=== PATIENT | female | born 1990 | race American Indian/Alaskan Native ===

== ENCOUNTER 2017-02-16 23:24 | Emergency (ER) | payer MEDICAID, OTHER ==
[2017-02-16 23:24] VITALS: BP 141/88
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
[2017-02-16 23:48] LABS: CHLORIDE,CL 103 mmol/L (101-111); SODIUM,NA 137 mmol/L (135-145)
[2017-02-17] MEDS ORDERED: Phenytoin 100 MG Cap.ER PO ONE (00:56)
== END 2017-02-17 01:23 | disposition home or self-care (01) ==
LOC: DL.ED 23:24
DX: R56.9 Unspecified convulsions (principal); F17.210 Nicotine dependence, cigarettes, uncomplicated; Z88.0 Allergy status to penicillin
CPT/HCPCS: 36415; 70450; 80053; 80185; 84703; 85025; 99284; A9270

== ENCOUNTER 2019-08-07 21:30 | Observation (INO) | payer MEDICAID, OTHER ==
[2019-08-07 22:22] LABS: ANION GAP 13.6 mEq/L (7-13); CHLORIDE,CL 104 mmol/L (98-107); SODIUM,NA 138 mmol/L (136-145)
[2019-08-07] MEDS ORDERED: Sodium Chloride 0.9% 1,000 ML IV SCH (23:15)
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
--- NOTE | 2019-08-08 00:29 | PCM.HP ---
H&P History of Present Illness - General Admit Problem/Dx: Admission Diagnosis/Problem Admission Diagnosis/Problem Seizure Left Chest Pain Score (Numeric/FACES): 3 - Related Data Allergies/Adverse Reactions: Allergies Allergy/AdvReac Type Severity Reaction Status Date / Time amoxicillin [Amoxicillin] Allergy Hives Verified 08/07/19 21:37 Home Medications: Home Meds . [No Known Home Meds] 02/16/17 [History] Past Medical History - Past Health History Medical/Surgical History: Denies Medical/Surgical History Other HEENT History: WEARS GLASSES Cardiovascular History: Reports: Arrhythmia Neurological History: Reports: Seizure Psychiatric History: Reports: Anxiety Other Dermatologic History: SKIN GRAFT TO LEFT LEG Social & Family History - Family History Family Medical History: Noncontributory - Tobacco Use Smoking Status *Q: Current Every Day Smoker Years of Tobacco use: 8 Packs/Tins Daily: 0.2 Second Hand Smoke Exposure: Yes - Caffeine Use Caffeine Use: Reports: Coffee, Soda - Recreational Drug Use Recreational Drug Use: No - Living Situation & Occupation Living situation: Reports: with Significant Other Occupation: Unemployed Exam - Vital Signs Vital Signs: Last Vital Signs Temp 37.1 C 08/07/19 23:51 Pulse 80 08/07/19 23:51 Resp 14 08/07/19 23:51 BP 122/58 L 08/07/19 23:51 Pulse Ox 100 08/07/19 23:51 Weight: 99.427 kg - Patient Data Lab Results Last 24 hrs: Laboratory Results - last 24 hr 08/07/19 08/07/19 08/07/19 Range/Units 21:44 21:50 21:50 WBC 4.5 L (5.0-10.0) 10^3/uL RBC 4.00 L (4.2-5.4) 10^6/uL Hgb 7.4 L D (12.0-16.0) g/dL Hct 25.1 L (37.0-47.0) % MCV 62.8 L D (80-100) fL MCH 18.5 L (27.0-34.0) pg MCHC 29.5 L (33.0-35.0) g/dL Plt Count 429 (150-450) 10^3/uL Neut % (Auto) 67.7 (42.2-75.2) % Lymph % (Auto) 27.2 (20.5-50.1) % Ramsey % (Auto) 4.9 (2-8) % Eos % (Auto) 0.0 L (1.0-3.0) % Baso % (Auto) 0.2 (0.0-1.0) % Sodium 138 (136-145) mmol/L Potassium 3.6 (3.5-5.1) mmol/L Chloride 104 (98-107) mmol/L Carbon Dioxide 24 (21-32) mmol/L Anion Gap 13.6 H (7-13) mEq/L BUN 10 (7-18) mg/dL Creatinine 0.66 (0.55-1.02) mg/dL Est Cr Clr Drug Dosing 120.10 mL/min Estimated GFR (MDRD) > 60 BUN/Creatinine Ratio 15.2 (No establ ref range) Glucose 94 (74-99) mg/dL Calcium 7.9 L (8.5-10.1) mg/dL Magnesium (1.8-2.4) mg/dL Total Bilirubin 0.2 (0.2-1.0) mg/dL AST 11 L (15-37) U/L ALT 18 (14-59) U/L Alkaline Phosphatase 132 H (46-116) U/L Troponin I < 0.017 (0.000-0.056) ng/mL Total Protein 6.9 (6.4-8.2) g/dL Albumin 2.3 L (3.4-5.0) g/dL Globulin 4.6 Albumin/Globulin Ratio 0.50 HCG, Qual HCG, Quant (0-6) mIU/mL Urine Opiates Screen Negative (NEGATIVE) Ur Oxycodone Screen Positive H (NEGATIVE) Urine Methadone Screen Negative (NEGATIVE) Ur Barbiturates Screen Negative (NEGATIVE) U Tricyclic Antidepress Negative (NEGATIVE) Ur Phencyclidine Scrn Negative (NEGATIVE) Ur Amphetamine Screen Positive H (NEGATIVE) U Methamphetamines Scrn Positive H (NEGATIVE) Urine MDMA Screen Negative (NEGATIVE) U Benzodiazepines Scrn Negative (NEGATIVE) Urine Cocaine Screen Negative (NEGATIVE) U Marijuana (THC) Screen Negative (NEGATIVE) Ethyl Alcohol < 3 (0) mg/dL HIV-1 Antibody (NONREACTIVE) HIV-2 Antibody (NONREACTIVE) HIV P24 Antigen (NONREACTIVE) Blood Type Gel Antibody Screen 08/07/19 08/07/19 08/07/19 Range/Units 21:50 21:50 21:50 WBC (5.0-10.0) 10^3/uL RBC (4.2-5.4) 10^6/uL Hgb (12.0-16.0) g/dL Hct (37.0-47.0) % MCV (80-100) fL MCH (27.0-34.0) pg MCHC (33.0-35.0) g/dL Plt Count (150-450) 10^3/uL Neut % (Auto) (42.2-75.2) % Lymph % (Auto) (20.5-50.1) % Ramsey % (Auto) (2-8) % Eos % (Auto) (1.0-3.0) % Baso % (Auto) (0.0-1.0) % Sodium (136-145) mmol/L Potassium (3.5-5.1) mmol/L Chloride (98-107) mmol/L Carbon Dioxide (21-32) mmol/L Anion Gap (7-13) mEq/L BUN (7-18) mg/dL Creatinine (0.55-1.02) mg/dL Est Cr Clr Drug Dosing mL/min Estimated GFR (MDRD) BUN/Creatinine Ratio (No establ ref range) Glucose (74-99) mg/dL Calcium (8.5-10.1) mg/dL Magnesium (1.8-2.4) mg/dL Total Bilirubin (0.2-1.0) mg/dL AST (15-37) U/L ALT (14-59) U/L Alkaline Phosphatase (46-116) U/L Troponin I (0.000-0.056) ng/mL Total Protein (6.4-8.2) g/dL Albumin (3.4-5.0) g/dL Globulin Albumin/Globulin Ratio HCG, Qual Positive HCG, Quant 2934 H (0-6) mIU/mL Urine Opiates Screen (NEGATIVE) Ur Oxycodone Screen (NEGATIVE) Urine Methadone Screen (NEGATIVE) Ur Barbiturates Screen (NEGATIVE) U Tricyclic Antidepress (NEGATIVE) Ur Phencyclidine Scrn (NEGATIVE) Ur Amphetamine Screen (NEGATIVE) U Methamphetamines Scrn (NEGATIVE) Urine MDMA Screen (NEGATIVE) U Benzodiazepines Scrn (NEGATIVE) Urine Cocaine Screen (NEGATIVE) U Marijuana (THC) Screen (NEGATIVE) Ethyl Alcohol (0) mg/dL HIV-1 Antibody Non-reactive (NONREACTIVE) HIV-2 Antibody Non-reactive (NONREACTIVE) HIV P24 Antigen Non-reactive (NONREACTIVE) Blood Type Gel Antibody Screen 08/07/19 08/07/19 Range/Units 21:50 21:50 WBC (5.0-10.0) 10^3/uL RBC (4.2-5.4) 10^6/uL Hgb (12.0-16.0) g/dL Hct (37.0-47.0) % MCV (80-100) fL MCH (27.0-34.0) pg MCHC (33.0-35.0) g/dL Plt Count (150-450) 10^3/uL Neut % (Auto) (42.2-75.2) % Lymph % (Auto) (20.5-50.1) % Ramsey % (Auto) (2-8) % Eos % (Auto) (1.0-3.0) % Baso % (Auto) (0.0-1.0) % Sodium (136-145) mmol/L Potassium (3.5-5.1) mmol/L Chloride (98-107) mmol/L Carbon Dioxide (21-32) mmol/L Anion Gap (7-13) mEq/L BUN (7-18) mg/dL Creatinine (0.55-1.02) mg/dL Est Cr Clr Drug Dosing mL/min Estimated GFR (MDRD) BUN/Creatinine Ratio (No establ ref range) Glucose (74-99) mg/dL Calcium (8.5-10.1) mg/dL Magnesium 1.6 L (1.8-2.4) mg/dL Total Bilirubin (0.2-1.0) mg/dL AST (15-37) U/L ALT (14-59) U/L Alkaline Phosphatase (46-116) U/L Troponin I (0.000-0.056) ng/mL Total Protein (6.4-8.2) g/dL Albumin (3.4-5.0) g/dL Globulin Albumin/Globulin Ratio HCG, Qual HCG, Quant (0-6) mIU/mL Urine Opiates Screen (NEGATIVE) Ur Oxycodone Screen (NEGATIVE) Urine Methadone Screen (NEGATIVE) Ur Barbiturates Screen (NEGATIVE) U Tricyclic Antidepress (NEGATIVE) Ur Phencyclidine Scrn (NEGATIVE) Ur Amphetamine Screen (NEGATIVE) U Methamphetamines Scrn (NEGATIVE) Urine MDMA Screen (NEGATIVE) U Benzodiazepines Scrn (NEGATIVE) Urine Cocaine Screen (NEGATIVE) U Marijuana (THC) Screen (NEGATIVE) Ethyl Alcohol (0) mg/dL HIV-1 Antibody (NONREACTIVE) HIV-2 Antibody (NONREACTIVE) HIV P24 Antigen (NONREACTIVE) Blood Type O POSITIVE Gel Antibody Screen Negative Result Diagrams: 08/07/19 21:50 08/07/19 21:50 Paul Results Last 24 hrs: Microbiology 08/07/19 22:32 Wet Prep - Final Vagina Orders Last 24hrs: Active Orders 24 hr Category Date Time Status Admission Diagnosis [ADT] Stat ADT 08/07/19 23:29 Ordered Admission Status [Patient Status] [ADT] Routine ADT 08/07/19 23:29 Active Cardiac Monitoring [RC] . DIRECTED Care 08/07/19 23:29 Active Forearm 2V Lt [CR] Urgent Exams 08/07/19 22:59 Taken OB Ltd 1 or More Fetus [US] Urgent Exams 08/07/19 22:05 Taken CHLAMYDIA AND GONORRHEA BY TMA Routine Lab 08/07/19 22:32 Received CULTURE GROUP B STREP [RM] Routine Lab 08/07/19 22:32 Received HBSAG SCREEN [REF] Urgent Lab 08/07/19 23:03 Received HEP C VIRUS AB [REF] Urgent Lab 08/07/19 23:03 Received RPR (SYPHILIS SERO) W/ RFLX [REF] Routine Lab 08/07/19 23:03 Received RUBELLA ANTIBODY, IGG [REF] Routine Lab 08/07/19 23:03 Received UA RFX PAUL AND CULT IF INDIC [URIN] Urgent Lab 08/08/19 00:04 Ordered Sodium Chloride 0.9% [Normal Saline] 1,000 ml Med 08/07/19 23:15 Active IV ASDIRECTED Medication Orders Sodium Chloride (Normal Saline) 1,000 mls @ 999 mls/hr IV ASDIRECTED DIEGO Last Admin: 08/07/19 23:19 Dose: 999 mls/hr
[2019-08-08] MEDS ORDERED: Magnesium Sulfate/Water 2 GM in Premix Bag 1 BAG IV ONE (00:32)
[2019-08-08] MEDS ORDERED: LORazepam 2 MG/ML SDV IV PRN (00:41)
[2019-08-08] MEDS: Lactated Ringers 1,000 ML IV SCH ×3 (01:17→21:15)
[2019-08-08] MEDS: Acetaminophen 325 MG Tab PO PRN ×4 (01:34→17:10)
[2019-08-08] MEDS ORDERED: hydrOXYzine HCl 25 MG Tab PO ONE (01:34)
[2019-08-08] MEDS: Morphine 2 MG/ML Syringe IVPUSH PRN ×8 (02:54→21:19)
[2019-08-08] MEDS: Ascorbic Acid 500 MG Tab PO SCH ×2 (08:50→21:14)
[2019-08-08] MEDS: Ferrous Sulfate 325 MG Tab PO SCH ×2 (08:50→17:13)
[2019-08-08 12:51] LABS: ANION GAP 14.7 mEq/L (7-13); CHLORIDE,CL 106 mmol/L (98-107); SODIUM,NA 139 mmol/L (136-145)
[2019-08-08] MEDS ORDERED: Nitrofurantoin Monohydrate/Macrocrystalline 100 MG Cap PO SCH (13:00)
[2019-08-08] MEDS: Indomethacin 25 MG Cap PO SCH ×2 (13:36→21:13)
[2019-08-08] MEDS: hydrOXYzine HCl 25 MG Tab PO PRN (17:13)
[2019-08-08] MEDS ORDERED: hydrOXYzine HCl 25 MG Tab PO SCH (21:00)
[2019-08-08] MEDS: Nitrofurantoin Monohydrate/Macrocrystalline 100 MG Cap PO SCH (21:14)
[2019-08-09] MEDS: Lactated Ringers 1,000 ML IV SCH (03:41)
[2019-08-09] MEDS: Morphine 2 MG/ML Syringe IVPUSH PRN (03:42)
[2019-08-09 07:54] VITALS: BP 116/73; PULSE 57
[2019-08-09] MEDS: Indomethacin 25 MG Cap PO SCH ×2 (08:25→11:18)
[2019-08-09] MEDS: Ascorbic Acid 500 MG Tab PO SCH (08:25)
[2019-08-09] MEDS: Acetaminophen 325 MG Tab PO PRN (08:25)
[2019-08-09] MEDS: Nitrofurantoin Monohydrate/Macrocrystalline 100 MG Cap PO SCH (08:25)
[2019-08-09] MEDS: Ferrous Sulfate 325 MG Tab PO SCH (08:25)
[2019-08-09] MEDS: hydrOXYzine HCl 25 MG Tab PO PRN (11:19)
--- NOTE | 2019-08-09 23:07 | PCM.DCSUM1 ---
Discharge Summary - Discharge Data Discharge Disposition: Home, Self-Care 01 Condition: Good - Referral to Home Health Primary Care Physician: Gabby Yates MD - Patient Summary/Data Consults: Consultations 08/08/19 00:50 Consult to Case Management/Whitesmith [CONS] Routine 08/08/19 12:49 OT Evaluation and Treatment [CONS] Routine - Patient Instructions Diet: Usual Diet as Tolerated Activity: As Tolerated Driving: May Drive Today Showering/Bathing: May Shower Notify Provider of: Fever, Increased Pain - Discharge Plan *PRESCRIPTION DRUG MONITORING PROGRAM REVIEWED*: No *COPY OF PRESCRIPTION DRUG MONITORING REPORT IN PATIENT REILLY: No Prescriptions/Med Rec: Ferrous Sulfate 325 mg PO BIDMEALS #60 tablet hydrOXYzine HCL [hydrOXYzine] 100 mg PO Q8H #60 tablet Indomethacin [Indocin] 25 mg PO TIDMEALS #42 cap Nitrofurantoin [place]/Macrocryst [Nitrofurantoin [place]-MCR] 100 mg PO BIDMEALS #12 cap Vit with Ca/FA/Iron [ Plus Iron] 1 each PO WITHBREAKFAST #30 tablet Home Medications: Home Meds Ascorbic Acid [Vitamin C] 500 mg PO BID #60 tablet 08/09/19 [Rx] Ferrous Sulfate 325 mg PO BIDMEALS #60 tablet 08/09/19 [Rx] Indomethacin [Indocin] 25 mg PO TIDMEALS #42 cap 08/09/19 [Rx] Nitrofurantoin [place]/Macrocryst [Nitrofurantoin [place]-MCR] 100 mg PO BIDMEALS #12 cap 08/09/19 [Rx] Vit with Ca/FA/Iron [ Plus Iron] 1 each PO WITHBREAKFAST #30 tablet 08/09/19 [Rx] hydrOXYzine HCL [hydrOXYzine] 100 mg PO Q8H #60 tablet 08/09/19 [Rx] Patient Handouts: Anemia, Seizure, Adult, Venous Thromboembolism Prevention Referrals: Dacia Yates MD [Primary Care Provider] - - Patient Data Vitals - Most Recent: Last Vital Signs Temp 37.1 C 08/09/19 07:53 Pulse 57 L 08/09/19 07:53 Resp 20 08/09/19 07:53 BP 116/73 08/09/19 07:53 Pulse Ox 98 08/09/19 07:53 Weight - Most Recent: 99.427 kg I&O - Last 24 hours: Intake & Output 08/09/19 08/09/19 08/10/19 14:59 22:59 06:59 Output Total 1000 Balance -1000 Lab Results - Last 24 hrs: Laboratory Results - last 24 hr 08/07/19 08/07/19 08/07/19 Range/Units 21:50 22:32 23:03 WBC (5.0-10.0) 10^3/uL RBC (4.2-5.4) 10^6/uL Hgb (12.0-16.0) g/dL Hct (37.0-47.0) % MCV (80-100) fL MCH (27.0-34.0) pg MCHC (33.0-35.0) g/dL Plt Count (150-450) 10^3/uL Transferrin (203-362) mg/dL Chlamydia/GC Source Urine C.trachomatis RNA (TMA) Negative (Negative) N.gonorrhoeae RNA (TMA) Negative (Negative) Rubella Immune Status Immune Rubella IgG Antibody Positive IU/mL Crossmatch See Detail 08/08/19 08/09/19 Range/Units 12:25 04:30 WBC 5.0 (5.0-10.0) 10^3/uL RBC 3.83 L (4.2-5.4) 10^6/uL Hgb 7.7 L (12.0-16.0) g/dL Hct 25.1 L (37.0-47.0) % MCV 65.5 L (80-100) fL MCH 20.1 L (27.0-34.0) pg MCHC 30.7 L (33.0-35.0) g/dL Plt Count 367 (150-450) 10^3/uL Transferrin 428 H (203-362) mg/dL Chlamydia/GC Source C.trachomatis RNA (TMA) (Negative) N.gonorrhoeae RNA (TMA) (Negative) Rubella Immune Status Rubella IgG Antibody IU/mL Crossmatch BEAU Results - Last 24 hrs: Microbiology 08/08/19 13:10 Aerobic Blood Culture - Preliminary Blood - Venous - Lab Draw NO GROWTH AFTER 1 DAY Anaerobic Blood Culture - Preliminary NO GROWTH AFTER 1 DAY 08/08/19 13:05 Aerobic Blood Culture - Preliminary Blood - Venous NO GROWTH AFTER 1 DAY Anaerobic Blood Culture - Preliminary NO GROWTH AFTER 1 DAY 08/08/19 00:04 Urine Culture - Final Urine, Voided Escherichia Coli Med Orders - Current: Current Medications Discontinued Medications Acetaminophen (Tylenol) 650 mg PO Q4H PRN PRN Reason: Pain (mild 1-3 )/fever Last Admin: 08/09/19 08:25 Dose: 650 mg Ascorbic Acid (Vitamin C) 500 mg PO BID COUNTS INCLUDE 234 BEDS AT THE [facility] Last Admin: 08/09/19 08:25 Dose: 500 mg Ferrous Sulfate (Ferrous Sulfate) 325 mg PO BIDMEALS COUNTS INCLUDE 234 BEDS AT THE [facility] Last Admin: 08/09/19 08:25 Dose: 325 mg Hydroxyzine HCl (Atarax) 50 mg PO BEDTIME COUNTS INCLUDE 234 BEDS AT THE [facility] Hydroxyzine HCl (Atarax) 50 mg PO ONETIME ONE Stop: 08/08/19 01:35 Last Admin: 08/08/19 01:55 Dose: 50 mg Hydroxyzine HCl (Atarax) 100 mg PO Q8H PRN PRN Reason: Anxiety Last Admin: 08/09/19 11:19 Dose: 100 mg Sodium Chloride (Normal Saline) 1,000 mls @ 999 mls/hr IV ASDIRECTED COUNTS INCLUDE 234 BEDS AT THE [facility] Last Admin: 08/07/19 23:19 Dose: 999 mls/hr Lactated Ringer's (Ringers, Lactated) 1,000 mls @ 150 mls/hr IV ASDIRECTED COUNTS INCLUDE 234 BEDS AT THE [facility] Last Admin: 08/09/19 03:41 Dose: 150 mls/hr Magnesium Sulfate 2 gm/ Premix 50 mls @ 25 mls/hr IV ONETIME ONE Stop: 08/08/19 02:31 Last Admin: 08/08/19 01:20 Dose: 25 mls/hr Indomethacin (Indocin) 25 mg PO TIDMEALS COUNTS INCLUDE 234 BEDS AT THE [facility] Last Admin: 08/09/19 11:18 Dose: 25 mg Influenza Virus Vaccine (Afluria Quad 2018- (3yr Up)) 60 mcg IM .ONCE ONE Stop: 08/09/19 09:16 Last Admin: 08/09/19 11:24 Dose: 60 mcg Lorazepam (Ativan) 4 mg IV ONETIME PRN PRN Reason: Seizures Morphine Sulfate (Morphine) 2 mg IVPUSH Q2H PRN PRN Reason: Pain Last Admin: 08/09/19 03:42 Dose: 2 mg Nitrofurantoin Macrocrystals (Macrobid) 100 mg PO BIDMEALS COUNTS INCLUDE 234 BEDS AT THE [facility] Stop: 08/15/19 13:01 Last Admin: 08/08/19 13:36 Dose: 100 mg Nitrofurantoin Macrocrystals (Macrobid) 100 mg PO BIDMEALS COUNTS INCLUDE 234 BEDS AT THE [facility] Last Admin: 08/09/19 08:25 Dose: 100 mg Prenat Multivit/Slide Machine Tender/Iron/Folic Ac ( Plus Iron) 1 each PO WITHBREAKFAST DIEGO
[2019-08-10] MEDS ORDERED: Prenatal Multivitamin with Calcium/Folic Acid/Iron Tab PO SCH (08:00)
== END 2019-08-09 12:10 | disposition home or self-care (01) ==
LOC: DL.ED 21:30 → DL.MS 23:29 → EEVIPCON 23:29
PROVIDERS: ADMIT Family Medicine; ATTEND Family Medicine
DX: O99.352 Diseases of the nervous system complicating pregnancy, second trimester (principal); R56.9 Unspecified convulsions; O99.322 Drug use complicating pregnancy, second trimester; F15.10 Other stimulant abuse, uncomplicated; O9A.212 Injury, poisoning and certain other consequences of external causes complicating pregnancy, second trimester; T14.8XXD Other injury of unspecified body region, subsequent encounter; F11.10 Opioid abuse, uncomplicated; O99.332 Smoking (tobacco) complicating pregnancy, second trimester; F17.210 Nicotine dependence, cigarettes, uncomplicated; Z88.0 Allergy status to penicillin; Z59.0 Homelessness; Z3A.22 22 weeks gestation of pregnancy
CPT/HCPCS: 36415; 36430; 73090-LT; 76815; 76881-LT; 80048; 80053; 80305-QW; 80307; 81001; 82728; 83540; 83550; 83735; 84466; 84484; 84702; 84703; 85025; 85027; 86592; 86593; 86762; 86803; 86850; 86900; 86901; 86920; 86922; 87040; 87077; 87081; 87086; 87088; 87186; 87210; 87340; 87389; 87491; 87591; 90686; 93005; 96361; 96365; 96366; 96375; 96376; 97140-GO; 97165-GO; 99284; 99285-25; A9270-GY; G0008; G0378; J2270; J3475; J7030; J7120; P9016

== ENCOUNTER 2019-12-10 03:16 | Inpatient (IN) | payer MEDICAID, OTHER ==
[2019-12-10] MEDS ORDERED: Oxytocin/Normal Saline 60 UNIT/1,000 ML BAG ONE (04:28)
[2019-12-10] MEDS ORDERED: ceFAZolin 2 GM in Premix Bag 1 BAG IV ONE (04:30)
[2019-12-10] MEDS ORDERED: Citric Acid/Sodium Citrate Solution 30 ML Cup PO ONE (04:30)
[2019-12-10] MEDS ORDERED: Tranexamic Acid 1,000 MG in Sodium Chloride 0.9% 100 ML IV PRN ×2 (04:30→06:35)
[2019-12-10] MEDS ORDERED: Oxytocin/Normal Saline 30 UNIT/500 ML BAG IV SCH (04:30)
[2019-12-10] MEDS ORDERED: Sodium Chloride 0.9% 10 ML Syringe FLUSH PRN (04:30)
[2019-12-10] MEDS ORDERED: Lactated Ringers 1,000 ML IV SCH ×2 (04:30)
--- NOTE | 2019-12-10 04:45 | PCM.LDHP ---
L&D History of Present Illness - General Date of Service: 12/10/19 Admit Problem/Dx: Patient Status Order with Admit Dx/Problem 12/10/19 04:36 Patient Status [ADT] Routine Admission Diagnosis/Problem Admission Diagnosis/Problem care Source of Information: Patient History Limitations: Reports: No Limitations - History of Present Illness Introduction:: 29-year-old at 41w4d per ultrasound at 23w5d presents with contractions starting 2-3 hours prior to presentation to L&D. She has a history of primary section and pre-eclampsia. Patient has had no care with this . She was admitted to the medical floor 08/07/2019 for observation after possible seizure due to methamphetamine use. Patient did have OB labs and an ultrasound at that time. Ultrasound showed a single IUP in breech presentation with a posterior, low lying placenta. She had a significant anemia with a hemoglobin of 6.8 and was transfused 1 unit pRBCs. UDS was positive for opiates and methamphetamines. She had a UTI and was treated with macrobid. She also had a superficial venous thrombosis and hypomagnesia both of which were treated. Patient was discharge with macrobid for UTI, Vitamin C and ferrous sulfate for anemia, 14 days of indomethacin for superficial venous thrombosis and hydroxyzine for her anxiety. Due to her high risk drug use, patient had been discharged to [facility] for court-mandated drug treatment but eloped about 12 hours later. Patient admitted to regular methamphetamine and opiate use today. Last use was at 2300 yesterday. She reports good movement. Contractions are 3-4 minutes apart. - Related Data Allergies/Adverse Reactions: Allergies Allergy/AdvReac Type Severity Reaction Status Date / Time amoxicillin [Amoxicillin] Allergy Hives Verified 12/10/19 04:40 Past Medical History - Past Health History Medical/Surgical History: Denies Medical/Surgical History Other HEENT History: WEARS GLASSES Cardiovascular History: Reports: Arrhythmia Neurological History: Reports: Seizure Psychiatric History: Reports: Anxiety Other Dermatologic History: SKIN GRAFT TO LEFT LEG Social & Family History - Family History Family Medical History: Noncontributory - Caffeine Use Caffeine Use: Reports: Coffee, Soda - Living Situation & Occupation Living situation: Reports: with Significant Other Occupation: Unemployed H&P Review of Systems - Review of Systems: Review Of Systems: See Below General: Reports: Fatigue HEENT: Reports: No Symptoms Pulmonary: Reports: No Symptoms Cardiovascular: Reports: No Symptoms Gastrointestinal: Reports: No Symptoms Genitourinary: Reports: No Symptoms Musculoskeletal: Reports: No Symptoms Skin: Reports: No Symptoms Neurological: Reports: No Symptoms L&D Exam - Exam Exam: See Below - OB Specific Contraction Frequency (min): 2-5 Contraction Intensity: Moderate to Strong Movement: Active Heart Tones: Present Heart Tones per Min: 150 Heart Rate (FHR) Variability: Moderate (6-25 bmp) Presentation: Unable to Assess - Simms Score Simms Score Consistency: Soft Simms Score Effacement: >80% Simms Score Dilation: 3-4 cm Simms Score 's Station: -3 - Exam General: Alert, Oriented HEENT: Mucosa Moist & [place] Lungs: Clear to Auscultation, Normal Respiratory Effort Cardiovascular: Regular Rate, Regular Rhythm GI/Abdominal Exam: Other (Gravid) Back Exam: Normal Inspection Extremities: No Pedal Edema Skin: Warm, Dry, Other (Bilateral arms with multiple track jonas noted) Psychiatric: Alert - Patient Data Lab Results Last 24 hrs: Laboratory Results - last 24 hr 12/10/19 12/10/19 12/10/19 Range/Units 03:30 03:30 04:20 WBC 7.1 (5.0-10.0) 10^3/uL RBC 4.29 (4.2-5.4) 10^6/uL Hgb 9.2 L D (12.0-16.0) g/dL Hct 29.6 L (37.0-47.0) % MCV 69.0 L D (80-100) fL MCH 21.4 L (27.0-34.0) pg MCHC 31.1 L (33.0-35.0) g/dL Plt Count 396 (150-450) 10^3/uL Urine Color Yellow (YELLOW) Urine Appearance Slightly cloudy (CLEAR) Urine pH 6.5 (5.0-9.0) Ur Specific [place] >= 1.030 (1.005-1.030) Urine Protein Trace H (NEGATIVE) Urine Glucose (UA) Negative (NEGATIVE) Urine Ketones Negative (NEGATIVE) Urine Occult Blood Moderate H (NEGATIVE) Urine Nitrite Negative (NEGATIVE) Urine Bilirubin Negative (NEGATIVE) Urine Urobilinogen 0.2 (0.2-1.0) mg/dL Ur Leukocyte Esterase Small H (NEGATIVE) Urine Opiates Screen Negative (NEGATIVE) Ur Oxycodone Screen Positive H (NEGATIVE) Urine Methadone Screen Negative (NEGATIVE) Ur Barbiturates Screen Negative (NEGATIVE) U Tricyclic Antidepress Negative (NEGATIVE) Ur Phencyclidine Scrn Negative (NEGATIVE) Ur Amphetamine Screen Positive H (NEGATIVE) U Methamphetamines Scrn Positive H (NEGATIVE) Urine MDMA Screen Positive H (NEGATIVE) U Benzodiazepines Scrn Negative (NEGATIVE) Urine Cocaine Screen Negative (NEGATIVE) U Marijuana (THC) Screen Negative (NEGATIVE) Result Diagrams: 12/10/19 04:20 12/10/19 04:20 - Problem List (1) History of section SNOMED Code(s): 135617429 ICD Code: Z98.891 - HISTORY OF UTERINE SCAR FROM PREVIOUS SURGERY Status: Acute Current Visit: Yes (2) History of pre-eclampsia in prior , currently in third trimester SNOMED Code(s): 808874485414447, 742893262350025 ICD Code: O09.293 - SUPRVSN OF PREG W POOR REPRODCTV OR OBSTET HX, THIRD TRI Status: Acute Current Visit: Yes (3) Drug use affecting in third trimester SNOMED Code(s): 13428850, 67954324, 931250217 ICD Code: O99.323 - DRUG USE COMPLICATING , THIRD TRIMESTER Status: Acute Current Visit: Yes (4) Gestational hypertension SNOMED Code(s): 496566766 ICD Code: O13.9 - GESTATIONAL HTN W/O SIGNIFICANT PROTEINURIA, UNSP TRIMESTER Status: Acute Current Visit: Yes (5) Anemia affecting in third trimester SNOMED Code(s): 16702014, 38771193 ICD Code: O99.013 - ANEMIA COMPLICATING , THIRD TRIMESTER Status: Acute Current Visit: Yes (6) Drug abuse SNOMED Code(s): 04960918 ICD Code: F19.10 - OTHER PSYCHOACTIVE SUBSTANCE ABUSE, UNCOMPLICATED Status: Acute Current Visit: No (7) No care in current SNOMED Code(s): 242834264 ICD Code: O09.30 - SUPRVSN OF PREG W INSUFFICIENT ANTENAT CARE, UNSP TRIMESTER Status: Acute Current Visit: No Qualifiers: Trimester: second trimester Qualified Code(s): O09.32 - Supervision of with insufficient care, second trimester (8) Hepatitis C antibody positive in blood SNOMED Code(s): 943906002 ICD Code: R76.8 - OTHER SPECIFIED ABNORMAL IMMUNOLOGICAL FINDINGS IN SERUM Status: Acute Current Visit: Yes Problem List Initiated/Reviewed/Updated: Yes Orders Last 24hrs: Active Orders 24 hr Category Date Time Status Patient Status [ADT] Routine ADT 12/10/19 04:36 Ordered Non Stress Test [RC] PER UNIT ROUTINE Care 12/10/19 04:36 Ordered Notify Provider Vital Signs OB [RC] ASDIRECTED Care 12/10/19 04:36 Ordered OB Check [OM.PC] Click to Edit Care 12/10/19 03:50 Ordered Peripheral IV Care [RC] . DIRECTED Care 12/10/19 04:36 Ordered Procedure Site Prep Instruct [RC] ASDIRECTED Care 12/10/19 04:36 Ordered RT Incentive Spirometry [RC] ASDIRECTED Care 12/10/19 04:36 Ordered Vital Signs [RC] PER UNIT ROUTINE Care 12/10/19 04:36 Ordered Consult to Case Management/Ward Helper [CONS] Cons 12/10/19 04:30 Ordered Routine Nothing Per Oral Diet [DIET] Diet 12/10/19 Breakfast Ordered Nothing Per Oral Diet [DIET] Diet 12/10/19 Dinner Ordered Nothing Per Oral Diet [DIET] Diet 12/10/19 Lunch Ordered ALANINE AMINOTRANSFERASE,ALT [CHEM] Routine Lab 12/10/19 04:07 Ordered ASPARTATE AMNIOTRANSFERASE,AST [CHEM] Routine Lab 12/10/19 04:07 Ordered BLOOD UREA NITROGEN,BUN [CHEM] Routine Lab 12/10/19 04:07 Ordered CORONAVIRUS COVID-19 PCR PHL Stat Lab 12/10/19 04:07 Ordered CREATININE W/GFR [CHEM] Routine Lab 12/10/19 04:07 Ordered LACTATE DEHYDROGENASE,LDH [CHEM] Routine Lab 12/10/19 04:07 Ordered PROTEIN/CREATININE RATIO,URINE [URCHEM] Routine Lab 12/10/19 04:07 Ordered TYPE AND SCREEN [BBK] Routine Lab 12/10/19 04:36 Ordered URIC ACID [CHEM] Routine Lab 12/10/19 04:07 Ordered URINALYSIS W/MICROSCOPIC [UA W/MICROSCOPIC] [URIN] Lab 12/10/19 03:30 Results Routine Citric Acid/Sodium Citrate [Bicitra Solution] Med 12/10/19 04:30 Once 30 ml PO ONETIME ONE Lactated Ringers @ 125 MLS/HR(1000ml) Med 12/10/19 04:30 Ordered Lactated Ringers [Ringers, Lactated] 1,000 ml IV ASDIRECTED Lactated Ringers [Ringers, Lactated] 1,000 ml Med 12/10/19 04:30 Ordered IV .BOLUS Oxytocin 30 Units in NS @ 2 MUNITS/MIN(500ml) Med 12/10/19 04:30 Ordered Oxytocin/Normal Saline [Pitocin in NS 30 UNIT/500 ML] 30 unit in 500 ml IV TITRATE Sodium Chloride 0.9% [Saline Flush] Med 12/10/19 04:30 Ordered 10 ml FLUSH ASDIRECTED PRN Tranexamic Acid [Cyklokapron] 1,000 mg Med 12/10/19 04:30 Ordered Sodium Chloride 0.9% [Normal Saline] 100 ml IV ONETIME ceFAZolin [Ancef] 2 gm Med 12/10/19 04:30 Ordered Premix Bag 1 bag IV ONETIME Peripheral IV Insertion Adult [OM.PC] Routine Oth 12/10/19 04:36 Ordered Schedule Procedure [COMM] Per Unit Routine Oth 12/10/19 04:36 Ordered Resuscitation Status Routine Resus Stat 12/10/19 04:30 Ordered Medication Orders Citric Acid/Sodium Citrate (Bicitra Solution) 30 ml PO ONETIME ONE Stop: 12/10/19 04:31 Lactated Ringer's (Ringers, Lactated) 1,000 mls @ 125 mls/hr IV ASDIRECTED DIEGO Lactated Ringer's (Ringers, Lactated) 1,000 mls @ 500 mls/hr IV .BOLUS D[place] Tranexamic Acid 1,000 mg/ (Sodium Chloride) 110 mls @ 660 mls/hr IV ONETIME PRN PRN Reason: Bleeding Oxytocin/Sodium Chloride (Pitocin In Ns 30 Unit/500 Ml) 30 unit in 500 mls @ 2 mls/hr IV TITRATE DIEGO; Protocol Cefazolin Sodium/Dextrose 2 gm (/ Premix) 50 mls @ 100 mls/hr IV ONETIME ONE Stop: 12/10/19 04:59 Sodium Chloride (Saline Flush) 10 ml FLUSH ASDIRECTED PRN PRN Reason: Keep Vein Open Assessment/Plan Comment:: 29-year-old at 41w4d per ultrasound done at 23w5d with a history of primary section presenting in active labor today --No care --Last drug use 2300--meth and opiates 1. Admit to L&D and initiate routine preoperative orders 2. Due to drug use and other co-morbid conditions, it would be preferable for patient to delivery at a tertiary hospital; however, due to active labor patient is not a candidate for transfer so we will proceed with repeat sec tion. 3. PIH labs have been ordered 4. 2 grams Ancef for pre-procedure prophylaxis. 5. Proceed with repeat section MARIANNA Dacia Yates MD
[2019-12-10] MEDS ORDERED: Carboprost Tromethamine 250 MCG/1 ML Amp IM PRN (06:35)
[2019-12-10] MEDS ORDERED: Acetaminophen 325 MG Tab PO PRN (06:35)
[2019-12-10] MEDS ORDERED: Acetaminophen/oxyCODONE 325-5 MG Tab PO PRN (06:35)
[2019-12-10] MEDS ORDERED: Naloxone 2 MG/2 ML Syringe IVPUSH PRN (06:35)
[2019-12-10] MEDS ORDERED: diphenhydrAMINE 50 MG/ML SDV IVPUSH PRN (06:35)
[2019-12-10] MEDS ORDERED: Methylergonovine 0.2 MG/1 ML Amp IM PRN (06:35)
[2019-12-10] MEDS ORDERED: Ondansetron 4 MG/2 ML SDV IVPUSH PRN (06:35)
[2019-12-10] MEDS ORDERED: Misoprostol 400 MCG (4 X 100 MCG TAB) RECTAL PRN (06:35)
[2019-12-10] MEDS ORDERED: ePHEDrine 50 MG/ML SDV IVPUSH PRN (06:35)
--- NOTE | 2019-12-10 06:52 | PCM.PRNOTE ---
- Free Text/Narrative Note: Section Operative Report Date of Surgery: 12/10/2019 Surgeon: Dacia Yates MD Ambulatory Care Nurse: Tania Tripp MD Pre-Operative Diagnosis: 41w4d History section History pre-eclampsia Gestational Hypertension No care Post-Operative Diagnosis: Same Procedure Performed: Repeat low transverse section Anesthesia: Spinal EBL: 450 mL IVF: 1400 mL Drains: Allen catheter with 150 mL of urine output Specimens: Umbilical cord for CordStat drug testing Complications: None apparent Findings: Normal uterus, tubes, and ovaries. Indication and Consent: The patient presented to floor today in active labor at 41w4d. Patient was noted to be 4 cm dilated. Patient admitted to methamphetamine and oxycodone use at 2300 yesterday. Due to active labor at term and history of section, the decision was made to proceed with repeat section. The patient understood that the risks of section include, but are not limited to, visceral or vascular injury, infection, blood loss and need for blood transfusion, prolonged hospitalization, and reoperation. The patient again stated understanding and desired to proceed. All questions were answered. Procedure in Detail: The patient was taken to the operating room where spinal anesthesia was placed and found to be adequate. 2 grams of cefazolin (Ancef) were given for infection prophylaxis. She was then prepped and draped in routine fashion in dorsal supine position with a left walsh tilt. Allen catheter and pneumoboots were placed. A Pfannenstiel skin incision was made with a scalpel. The incision was carried down to the fascia sharply. The fascia was incised and extended laterally. The superior aspect of the fascia was grasped with Darius clamps; the underlying rec tus muscle and pyramidalis was dissected off with sharp and blunt technique. In a similar fashion, the inferior aspect of the fascia was elevated with Darius clamps and the rectus muscle was dissected off. Hemostasis was achieved with the Bovie. The rectus musculature was in the midline down to the level of the pubic symphysis. Pre-peritoneal fatty tissue was bluntly dissected to expose the peritoneum. The peritoneum was found to be free of adherent bowel or bladder tissue and entered bluntly. The peritoneal opening was then extended superiorly and inferiorly to the bladder reflection with good visualization of the bladder. The Jagdeep retractor was inserted. Intraabdominal survey revealed scant, clear peritoneal fluid and thinned-out lower uterine segment. The vesicouterine peritoneum was opened with a pickup and mets, and the bladder flap was developed. The bladder blade was repositioned to keep the bladder out of the operative field. The lower uterine segment was incised with a scalpel. The amniotic sac ruptured with insertion of the finger into the hysterotomy. Thick meconium stained fluid was noted. The fetus was in footling breech position. The feet were gently pulled through the hysterotomy. The rump was elevated out of the maternal pelvis, sacrum anterior in position, with special attention paid to avoid using the uterine incision as a fulcrum. The fetus was delivered to the level of the scapula. A blue towel was wrapped around the fetus and then the fetus was then rotated 90 degree to facilitate sweeping the anterior arm across its face to deliver through the incision. The fetus was then rotated 180 degrees to deliver the other arm in a similar fashion. The Gentle fundal pressure was applied to keep the fetus's neck in flexed position as it was delivered through the incision. The infant was delivered with minimal difficulty. Bulb suctioning of the infant's nose and mouth was not performed on the operative field.. The cord was clamped and cut in standard fashion, and the infant was handed over to the awaiting nursery staff. Cord blood was collected. IV oxytocin was initiated to facilitate uterine contractions. The placenta was delivered intact with manual message of the uterine fundus along with gentle cord traction. The inside of the uterus was gently wiped with a lap sponge to assure complete removal of remaining products of conception. The uterine incision was closed with 0 -Vicryl suture in a running locked fashion. The incision was inspected and hemostasis was achieved. The ovaries and tubes were visualized and found to be normal. The blood clots and fluid were wiped out of the abdomen and pelvis with moist laparotomy sponges. The uterine incision was re-inspected along with all other incised surfaces and good hemostasis was confirmed. The Jagdeep retractor was removed. The fascia was then closed with 2-0 looped PDS suture with care not to include any underlying abdominal contents. The skin was closed with mansoor. Sponge and instrument counts were reported as correct times two. Patient tolerated procedure well and was taken to PACU in stable condition. Dacia Yates MD
--- NOTE | 2019-12-10 06:55 | PCM.DEL ---
L & D Note - General Info Date of Service: 12/10/19 Mother's Due Date: 11/29/19 - Delivery Note Labor: Spontaneous Delivery Outcome: Livebirth Infant Delivery Method: Repeat Presentation: Breech Anesthesia Type: Spinal Placenta: Intact Cord: 3 Vessels Estimated Blood Loss: 450 Resuscitation Needed: Yes : Suctioned, Stimulated, Warmed, [place] Used, Warmer Used Provider: Dacia Yates Score 1 min: 8 Score 5 min: 9 Delivery Comments (Free Text/Narrative):: Please see procedure note - General Info Date of Service: 12/10/19 - Patient Data Vitals - Most Recent: Last Vital Signs Temp 36.7 C 12/10/19 04:48 Pulse 83 12/10/19 04:48 Resp BP 166/98 H 12/10/19 04:48 Pulse Ox Weight - Most Recent: 104.326 kg Lab Results Last 24 Hours: Laboratory Results - last 24 hr 12/10/19 12/10/19 12/10/19 Range/Units 03:30 03:30 03:30 WBC (5.0-10.0) 10^3/uL RBC (4.2-5.4) 10^6/uL Hgb (12.0-16.0) g/dL Hct (37.0-47.0) % MCV (80-100) fL MCH (27.0-34.0) pg MCHC (33.0-35.0) g/dL Plt Count (150-450) 10^3/uL BUN (7-18) mg/dL Creatinine (0.55-1.02) mg/dL Est Cr Clr Drug Dosing mL/min Estimated GFR (MDRD) Uric Acid (2.6-6.0) mg/dL AST (15-37) U/L ALT (14-59) U/L Lactate Dehydrogenase (81-234) U/L Urine Color Yellow (YELLOW) Urine Appearance Slightly cloudy (CLEAR) Urine pH 6.5 (5.0-9.0) Ur Specific [place] >= 1.030 (1.005-1.030) Urine Protein Trace H (NEGATIVE) Urine Glucose (UA) Negative (NEGATIVE) Urine Ketones Negative (NEGATIVE) Urine Occult Blood Moderate H (NEGATIVE) Urine Nitrite Negative (NEGATIVE) Urine Bilirubin Negative (NEGATIVE) Urine Urobilinogen 0.2 (0.2-1.0) mg/dL Ur Leukocyte Esterase Small H (NEGATIVE) Urine RBC 0-5 /HPF Urine WBC 20-30 H (0-5/HPF) /HPF Ur Epithelial Cells Many H (NOT SEEN) /HPF Urine Bacteria Many H (0-FEW/HPF) /HPF Urine Other See note Urinalysis Comment Ur Random Creatinine 217.67 (No establ ref range) mg/dL U Random Total Protein 54.8 H (0.0-11.9) mg/dL Protein/Creatinin Ratio 251.8 H (<150.0) mg/g Urine Opiates Screen Negative (NEGATIVE) Ur Oxycodone Screen Positive H (NEGATIVE) Urine Methadone Screen Negative (NEGATIVE) Ur Barbiturates Screen Negative (NEGATIVE) U Tricyclic Antidepress Negative (NEGATIVE) Ur Phencyclidine Scrn Negative (NEGATIVE) Ur Amphetamine Screen Positive H (NEGATIVE) U Methamphetamines Scrn Positive H (NEGATIVE) Urine MDMA Screen Positive H (NEGATIVE) U Benzodiazepines Scrn Negative (NEGATIVE) Urine Cocaine Screen Negative (NEGATIVE) U Marijuana (THC) Screen Negative (NEGATIVE) COVID-19 (KURT) (NEGATIVE) Blood Type Gel Antibody Screen 12/10/19 12/10/19 12/10/19 Range/Units 04:20 04:20 04:20 WBC 7.1 (5.0-10.0) 10^3/uL RBC 4.29 (4.2-5.4) 10^6/uL Hgb 9.2 L D (12.0-16.0) g/dL Hct 29.6 L (37.0-47.0) % MCV 69.0 L D (80-100) fL MCH 21.4 L (27.0-34.0) pg MCHC 31.1 L (33.0-35.0) g/dL Plt Count 396 (150-450) 10^3/uL BUN 9 (7-18) mg/dL Creatinine 0.76 (0.55-1.02) mg/dL Est Cr Clr Drug Dosing 104.30 mL/min Estimated GFR (MDRD) > 60 Uric Acid 2.9 (2.6-6.0) mg/dL AST 22 (15-37) U/L ALT 24 (14-59) U/L Lactate Dehydrogenase 144 (81-234) U/L Urine Color (YELLOW) Urine Appearance (CLEAR) Urine pH (5.0-9.0) Ur Specific [place] (1.005-1.030) Urine Protein (NEGATIVE) Urine Glucose (UA) (NEGATIVE) Urine Ketones (NEGATIVE) Urine Occult Blood (NEGATIVE) Urine Nitrite (NEGATIVE) Urine Bilirubin (NEGATIVE) Urine Urobilinogen (0.2-1.0) mg/dL Ur Leukocyte Esterase (NEGATIVE) Urine RBC /HPF Urine WBC (0-5/HPF) /HPF Ur Epithelial Cells (NOT SEEN) /HPF Urine Bacteria (0-FEW/HPF) /HPF Urine Other Urinalysis Comment Ur Random Creatinine (No establ ref range) mg/dL U Random Total Protein (0.0-11.9) mg/dL Protein/Creatinin Ratio (<150.0) mg/g Urine Opiates Screen (NEGATIVE) Ur Oxycodone Screen (NEGATIVE) Urine Methadone Screen (NEGATIVE) Ur Barbiturates Screen (NEGATIVE) U Tricyclic Antidepress (NEGATIVE) Ur Phencyclidine Scrn (NEGATIVE) Ur Amphetamine Screen (NEGATIVE) U Methamphetamines Scrn (NEGATIVE) Urine MDMA Screen (NEGATIVE) U Benzodiazepines Scrn (NEGATIVE) Urine Cocaine Screen (NEGATIVE) U Marijuana (THC) Screen (NEGATIVE) COVID-19 (KURT) (NEGATIVE) Blood Type O POSITIVE Gel Antibody Screen Negative 12/10/19 Range/Units 04:35 WBC (5.0-10.0) 10^3/uL RBC (4.2-5.4) 10^6/uL Hgb (12.0-16.0) g/dL Hct (37.0-47.0) % MCV (80-100) fL MCH (27.0-34.0) pg MCHC (33.0-35.0) g/dL Plt Count (150-450) 10^3/uL BUN (7-18) mg/dL Creatinine (0.55-1.02) mg/dL Est Cr Clr Drug Dosing mL/min Estimated GFR (MDRD) Uric Acid (2.6-6.0) mg/dL AST (15-37) U/L ALT (14-59) U/L Lactate Dehydrogenase (81-234) U/L Urine Color (YELLOW) Urine Appearance (CLEAR) Urine pH (5.0-9.0) Ur Specific [place] (1.005-1.030) Urine Protein (NEGATIVE) Urine Glucose (UA) (NEGATIVE) Urine Ketones (NEGATIVE) Urine Occult Blood (NEGATIVE) Urine Nitrite (NEGATIVE) Urine Bilirubin (NEGATIVE) Urine Urobilinogen (0.2-1.0) mg/dL Ur Leukocyte Esterase (NEGATIVE) Urine RBC /HPF Urine WBC (0-5/HPF) /HPF Ur Epithelial Cells (NOT SEEN) /HPF Urine Bacteria (0-FEW/HPF) /HPF Urine Other Urinalysis Comment Ur Random Creatinine (No establ ref range) mg/dL U Random Total Protein (0.0-11.9) mg/dL Protein/Creatinin Ratio (<150.0) mg/g Urine Opiates Screen (NEGATIVE) Ur Oxycodone Screen (NEGATIVE) Urine Methadone Screen (NEGATIVE) Ur Barbiturates Screen (NEGATIVE) U Tricyclic Antidepress (NEGATIVE) Ur Phencyclidine Scrn (NEGATIVE) Ur Amphetamine Screen (NEGATIVE) U Methamphetamines Scrn (NEGATIVE) Urine MDMA Screen (NEGATIVE) U Benzodiazepines Scrn (NEGATIVE) Urine Cocaine Screen (NEGATIVE) U Marijuana (THC) Screen (NEGATIVE) COVID-19 (KURT) Negative (NEGATIVE) Blood Type Gel Antibody Screen Med Orders - Current: Current Medications Acetaminophen (Tylenol) 650 mg PO Q6H PRN PRN Reason: mild pain or fever Ascorbic Acid (Vitamin C) 500 mg PO DAILY [place]IE[place] Carboprost Tromethamine (Hemabate Ds) 250 mcg IM ONETIME PRN PRN Reason: Bleeding Diphenhydramine HCl (Benadryl) 25 mg IVPUSH Q6H PRN PRN Reason: Itching or Nausea Docusate Sodium (Colace) 100 mg PO Q12H PRN PRN Reason: Constipation Ephedrine Sulfate (Ephedrine Sulfate) 5 mg IVPUSH SEECOMMENT PRN PRN Reason: Other Ferrous Sulfate (Ferrous Sulfate) 325 mg PO BIDMEALS [place] Tranexamic Acid 1,000 mg/ (Sodium Chloride) 110 mls @ 660 mls/hr IV ONETIME PRN PRN Reason: Bleeding Oxytocin/Sodium Chloride (Pitocin In Ns 30 Unit/500 Ml) 30 unit in 500 mls @ 2 mls/hr IV TITRATE DIEGO; Protocol Last Admin: 12/10/19 06:17 Dose: 125 munits/min, 125 mls/hr Documented by: Lactated Ringer's (Ringers, Lactated) 1,000 mls @ 125 mls/hr IV ASDIRECTED [place] Ibuprofen (Motrin) 800 mg PO Q8H PRN PRN Reason: mild pain or fever Ketorolac Tromethamine (Toradol) 15 mg IVPUSH Q6H [facility] Stop: 12/10/19 18:46 Methylergonovine Maleate (Methergine) 0.2 mg IM ONETIME PRN PRN Reason: Excessive Vaginal Bleeding Misoprostol (Cytotec) 800 mcg RECTAL ASDIRECTED PRN PRN Reason: Excessive bleeding Naloxone HCl (Narcan) 0.1 mg IVPUSH SEECOMMENT PRN PRN Reason: Respiratory Depression Ondansetron HCl (Zofran) 4 mg IVPUSH Q4H PRN PRN Reason: Nausea/Vomiting Oxycodone/Acetaminophen (Percocet 325-5 Mg) 1 tab PO Q4H PRN PRN Reason: Pain (moderate 4-6) Oxycodone/Acetaminophen (Percocet 325-5 Mg) 2 tab PO Q4H PRN PRN Reason: Pain (moderate 4-6) Prenat Multivit/[place]/Iron/Folic Ac ( Plus Iron) 1 each PO DAILY [facility] Simethicone (Simethicone) 160 mg PO QID [facility] Sodium Chloride (Saline Flush) 10 ml FLUSH ASDIRECTED PRN PRN Reason: Keep Vein Open Discontinued Medications Citric Acid/Sodium Citrate (Bicitra Solution) 30 ml PO ONETIME ONE Stop: 12/10/19 04:31 Oxytocin/Sodium Chloride (Pitocin In Ns 30 Unit/500 Ml) Confirm Administered Dose 60 unit in 1,000 mls @ as directed .ROUTE .STK-MED ONE Stop: 12/10/19 04:29 Lactated Ringer's (Ringers, Lactated) 1,000 mls @ 125 mls/hr IV ASDIRECTED [facility] Lactated Ringer's (Ringers, Lactated) 1,000 mls @ 500 mls/hr IV .BOLUS [facility] Cefazolin Sodium/Dextrose 2 gm (/ Premix) 50 mls @ 100 mls/hr IV ONETIME ONE Stop: 12/10/19 04:59 - Problem List & Annotations (1) History of section SNOMED Code(s): 959438108 Code(s): Z98.891 - HISTORY OF UTERINE SCAR FROM PREVIOUS SURGERY Status: Acute Current Visit: Yes (2) History of pre-eclampsia in prior , currently in third trimester SNOMED Code(s): 245682344765242, 846727420870694 Code(s): O09.293 - SUPRVSN OF PREG W POOR REPRODCTV OR OBSTET HX, THIRD TRI Status: Acute Current Visit: Yes (3) Drug use affecting in third trimester SNOMED Code(s): 23474279, 06380108, 668481935 Code(s): O99.323 - DRUG USE COMPLICATING , THIRD TRIMESTER Status: Acute Current Visit: Yes (4) Gestational hypertension SNOMED Code(s): 912546624 Code(s): O13.9 - GESTATIONAL HTN W/O SIGNIFICANT PROTEINURIA, UNSP TRIMESTER Status: Acute Current Visit: Yes (5) Anemia affecting in third trimester SNOMED Code(s): 42104152, 14661613 Code(s): O99.013 - ANEMIA COMPLICATING , THIRD TRIMESTER Status: Acute Current Visit: Yes (6) Drug abuse SNOMED Code(s): 22194919 Code(s): F19.10 - OTHER PSYCHOACTIVE SUBSTANCE ABUSE, UNCOMPLICATED Status: Acute Current Visit: No (7) No care in current SNOMED Code(s): 916867965 Code(s): O09.30 - SUPRVSN OF PREG W INSUFFICIENT ANTENAT CARE, UNSP TRIMESTER Status: Acute Current Visit: No Qualifiers: Trimester: second trimester Qualified Code(s): O09.32 - Supervision of with insufficient care, second trimester (8) Hepatitis C antibody positive in blood SNOMED Code(s): 555466253 Code(s): R76.8 - OTHER SPECIFIED ABNORMAL IMMUNOLOGICAL FINDINGS IN SERUM Status: Acute Current Visit: Yes (9) Status post section SNOMED Code(s): 189225014, 822903845 Code(s): Z98.891 - HISTORY OF UTERINE SCAR FROM PREVIOUS SURGERY Status: Acute Current Visit: Yes - Problem List Review Problem List Initiated/Reviewed/Updated: Yes - My Orders Last 24 Hours: My Active Orders 12/10/19 03:50 OB Check [OM.PC] Click to Edit 12/10/19 04:30 Consult to Case Management/Tipple Supervisor [CONS] Routine Oxytocin/Normal Saline [Pitocin in NS 30 UNIT/500 ML] 30 unit in 500 ml IV TITRATE Sodium Chloride 0.9% [Saline Flush] 10 ml FLUSH ASDIRECTED PRN Tranexamic Acid [Cyklokapron] 1,000 mg Sodium Chloride 0.9% [Normal Saline] 100 ml IV ONETIME Resuscitation Status Routine 12/10/19 04:36 Patient Status [ADT] Routine Notify Provider Vital Signs OB [RC] ASDIRECTED Peripheral IV Care [RC] Peripheral IV Insertion Adult [OM.PC] Routine 12/10/19 06:35 Antiembolic Devices [RC] PER UNIT ROUTINE Bedrest [RC] ASDIRECTED Communication Order [RC] PER UNIT ROUTINE Communication Order [RC] PER UNIT ROUTINE Communication Order [RC] Per Unit Routine Intake and Output [RC] Q8H Notify Provider Intake and Out [RC] ASDIRECTED RT Incentive Spirometry [RC] Q2HWA Urinary Catheter Removal [RC] Per Unit Routine Vital Signs [RC] PER UNIT ROUTINE Acetaminophen [TylenoL] 650 mg PO Q6H PRN Acetaminophen/oxyCODONE [Percocet 325-5 MG] 1 tab PO Q4H PRN Acetaminophen/oxyCODONE [Percocet 325-5 MG] 2 tab PO Q4H PRN Carboprost Tromethamine [Hemabate DS] 250 mcg IM ONETIME PRN Docusate Sodium [Colace] 100 mg PO Q12H PRN Ibuprofen [Motrin] 800 mg PO Q8H PRN Methylergonovine [Methergine] 0.2 mg IM ONETIME PRN Naloxone [Narcan] 0.1 mg IVPUSH SEECOMMENT PRN Ondansetron [Zofran] 4 mg IVPUSH Q4H PRN diphenhydrAMINE [Benadryl] 25 mg IVPUSH Q6H PRN ePHEDrine [ePHEDrine sulfate] 5 mg IVPUSH SEECOMMENT PRN miSOPROStoL [Cytotec] 800 mcg RECTAL ASDIRECTED PRN Antiembolic Hose [OM.PC] Per Unit Routine Assess Lochia [WOMSER] Per Unit Routine Assess Uterine Involution [WOMSER] Per Unit Routine Breast Pump [WOMSER] Per Unit Routine Sequential Compression Device [OM.PC] Per Unit Routine 12/10/19 06:45 Ketorolac [Toradol] 15 mg IVPUSH Q6H Lactated Ringers @ 125 MLS/HR(1000ml) Lactated Ringers [Ringers, Lactated] 1,000 ml IV ASDIRECTED 12/10/19 Breakfast Nothing Per Oral Diet [DIET] 12/10/19 08:00 Ferrous Sulfate 325 mg PO BIDMEALS 12/10/19 09:00 Ascorbic Acid [Vitamin C] 500 mg PO DAILY Vit with Ca/FA/Iron [ Plus Iron] 1 each PO DAILY Simethicone 160 mg PO QID 12/10/19 Lunch Clear Liquid Diet [DIET] 12/11/19 06:30 CBC W/O DIFF,HEMOGRAM [HEME] Routine HEPATITIS C AB TOTAL IG [REF] Routine RPR (SYPHILIS SERO) W/ RFLX [REF] Routine - Assessment Assessment:: 29-year-old now at 41w4d s/p repeat section for active labor --No care --Breech - Plan Plan:: 1. Initiate routine cares 2. Plans to bottle feed 3. Will obtain CBC, HCV RNA and syphilis tomorrow 4. Anticipate discharge 12/10/2019 Dacia Yates MD
[2019-12-10] MEDS: Lactated Ringers 1,000 ML IV SCH ×3 (09:10→19:37)
[2019-12-10] MEDS: Ketorolac 30 MG/ML SDV IVPUSH SCH ×3 (12:10→17:56)
[2019-12-10] MEDS: Simethicone 80 MG Tab.Chew PO SCH ×4 (12:11→21:02)
[2019-12-10] MEDS: Acetaminophen/oxyCODONE 325-5 MG Tab PO PRN ×2 (14:27→18:28)
[2019-12-10] MEDS: Ferrous Sulfate 325 MG Tab PO SCH ×2 (16:17→17:54)
[2019-12-10] MEDS: Prenatal Multivitamin with Calcium/Folic Acid/Iron Tab PO SCH (16:23)
[2019-12-10] MEDS: Ascorbic Acid 500 MG Tab PO SCH (16:23)
[2019-12-10] MEDS: Docusate Sodium 100 MG Cap PO PRN (21:02)
[2019-12-11] MEDS: Ketorolac 30 MG/ML SDV IVPUSH SCH (00:13)
[2019-12-11] MEDS: Lactated Ringers 1,000 ML IV SCH ×2 (00:16→04:17)
[2019-12-11] MEDS ORDERED: Ibuprofen 800 MG Tab PO PRN (03:00)
[2019-12-11] MEDS: Acetaminophen/oxyCODONE 325-5 MG Tab PO PRN ×3 (04:14→12:12)
[2019-12-11] MEDS: Docusate Sodium 100 MG Cap PO PRN (08:16)
[2019-12-11] MEDS: Prenatal Multivitamin with Calcium/Folic Acid/Iron Tab PO SCH (08:16)
[2019-12-11] MEDS: Ferrous Sulfate 325 MG Tab PO SCH (08:16)
[2019-12-11] MEDS: Ascorbic Acid 500 MG Tab PO SCH (08:16)
[2019-12-11] MEDS: Simethicone 80 MG Tab.Chew PO SCH ×2 (08:16→12:14)
[2019-12-11] MEDS ORDERED: Oxytocin/Normal Saline 30 UNIT/500 ML BAG IV ONE (09:39)
[2019-12-11 11:17] VITALS: PULSE 52
[2019-12-11 11:28] VITALS: BP 104/75
[2019-12-11] MEDS ORDERED: Lactated Ringers 1,000 ML IV ONE (15:14)
[2019-12-11] MEDS ORDERED: Ondansetron 4 MG/2 ML SDV IV ONE (15:14)
[2019-12-11] MEDS ORDERED: Tranexamic Acid 1,000 MG in Sodium Chloride 0.9% 100 ML IV ONE (15:14)
[2019-12-11] MEDS ORDERED: Morphine PF 1 MG/ML Amp ONE (15:14)
[2019-12-11] MEDS ORDERED: Dexamethasone 4 MG/ML SDV IV ONE (15:14)
--- NOTE | 2019-12-11 23:16 | PCM.PNPP ---
- General Info Date of Service: 12/11/19 Subjective Update: POD#1. Patient is very sleepy this morning. She has not yet been out of bed. Urine output was low overnight. Patient was given a 500 mL bolus which did help. She has not yet been out of bed. She is tolerating a general diet. Some swelling in the legs. Baby was transferred to [facility] yesterday morning. No concerns per patient or per nursing staff. Functional Status: Reports: Pain Controlled, Tolerating Diet, Ambulating, U rinating - Review of Systems General: Reports: Fatigue HEENT: Reports: No Symptoms Pulmonary: Reports: No Symptoms Cardiovascular: Reports: No Symptoms Gastrointestinal: Reports: No Symptoms Genitourinary: Reports: No Symptoms Musculoskeletal: Reports: Back Pain Skin: Reports: No Symptoms Neurological: Reports: No Symptoms - General Info Date of Service: 12/11/19 - Patient Data Vital Signs - Most Recent: Last Vital Signs Temp 37.2 C 12/11/19 11:27 Pulse 52 L 12/11/19 11:27 Resp 16 12/11/19 11:27 BP 104/75 12/11/19 11:27 Pulse Ox 99 12/11/19 11:27 Weight - Most Recent: 104.326 kg I&O - Last 24 Hours: Intake & Output 12/11/19 12/11/19 12/12/19 14:59 22:59 06:59 Intake Total 390 Output Total 1280 Balance -890 Lab Results - Last 24 Hours: Laboratory Results - last 24 hr 12/10/19 12/11/19 Range/Units 04:20 05:40 WBC 6.7 (5.0-10.0) 10^3/uL RBC 3.17 L (4.2-5.4) 10^6/uL Hgb 6.8 L* D (12.0-16.0) g/dL Hct 22.4 L (37.0-47.0) % MCV 70.7 L (80-100) fL MCH 21.5 L (27.0-34.0) pg MCHC 30.4 L (33.0-35.0) g/dL Plt Count 330 (150-450) 10^3/uL Blood Type O POSITIVE Gel Antibody Screen Negative Crossmatch See Detail Med Orders - Current: Current Medications Discontinued Medications Acetaminophen (Tylenol) 650 mg PO Q6H PRN PRN Reason: mild pain or fever Ascorbic Acid (Vitamin C) 500 mg PO DAILY [facility] Last Admin: 12/11/19 08:16 Dose: 500 mg Documented by: Carboprost Tromethamine (Hemabate Ds) 250 mcg IM ONETIME PRN PRN Reason: Bleeding Citric Acid/Sodium Citrate (Bicitra Solution) 30 ml PO ONETIME ONE Stop: 12/10/19 04:31 Last Admin: 12/10/19 19:39 Dose: Not Given Documented by: Diphenhydramine HCl (Benadryl) 25 mg IVPUSH Q6H PRN PRN Reason: Itching or Nausea Docusate Sodium (Colace) 100 mg PO Q12H PRN PRN Reason: Constipation Last Admin: 12/11/19 08:16 Dose: 100 mg Documented by: Ephedrine Sulfate (Ephedrine Sulfate) 5 mg IVPUSH SEECOMMENT PRN PRN Reason: Other Ferrous Sulfate (Ferrous Sulfate) 325 mg PO BIDMEALS [facility] Last Admin: 12/11/19 08:16 Dose: 325 mg Documented by: Oxytocin/Sodium Chloride (Pitocin In Ns 30 Unit/500 Ml) Confirm Administered Dose 60 unit in 1,000 mls @ as directed .ROUTE .STK-MED ONE Stop: 12/10/19 04:29 Lactated Ringer's (Ringers, Lactated) 1,000 mls @ 125 mls/hr IV ASDIRECTED [facility] Lactated Ringer's (Ringers, Lactated) 1,000 mls @ 500 mls/hr IV .[place] Tranexamic Acid 1,000 mg/ (Sodium Chloride) 110 mls @ 660 mls/hr IV ONETIME PRN PRN Reason: Bleeding Oxytocin/Sodium Chloride (Pitocin In Ns 30 Unit/500 Ml) 30 unit in 500 mls @ 2 mls/hr IV TITRATE DIEGO; Protocol Last Titration: 12/10/19 09:15 Dose: 0 munits/min, 0 mls/hr Documented by: Cefazolin Sodium/Dextrose 2 gm (/ Premix) 50 mls @ 100 mls/hr IV ONETIME ONE Stop: 12/10/19 04:59 Last Admin: 12/10/19 05:16 Dose: 100 mls/hr Documented by: Lactated Ringer's (Ringers, Lactated) 1,000 mls @ 125 mls/hr IV ASDIRECTED [facility] Last Admin: 12/11/19 04:17 Dose: 125 mls/hr Documented by: Oxytocin/Sodium Chloride (Pitocin In Ns 30 Unit/500 Ml) 30 unit in 500 mls @ as directed IV .STK-MED ONE Stop: 12/11/19 09:40 Ibuprofen (Motrin) 800 mg PO Q8H PRN PRN Reason: mild pain or fever Last Admin: 12/11/19 08:18 Dose: 800 mg Documented by: Ketorolac Tromethamine (Toradol) 15 mg IVPUSH Q6H [facility] Stop: 12/10/19 18:46 Last Admin: 12/10/19 16:18 Dose: Not Given Documented by: Ketorolac Tromethamine (Toradol) 15 mg IVPUSH Q6H [facility] Stop: 12/11/19 00:01 Last Admin: 12/11/19 00:13 Dose: 15 mg Documented by: Methylergonovine Maleate (Methergine) 0.2 mg IM ONETIME PRN PRN Reason: Excessive Vaginal Bleeding Misoprostol (Cytotec) 800 mcg RECTAL ASDIRECTED PRN PRN Reason: Excessive bleeding Naloxone HCl (Narcan) 0.1 mg IVPUSH SEECOMMENT PRN PRN Reason: Respiratory Depression Ondansetron HCl (Zofran) 4 mg IVPUSH Q4H PRN PRN Reason: Nausea/Vomiting Oxycodone/Acetaminophen (Percocet 325-5 Mg) 1 tab PO Q4H PRN PRN Reason: Pain (moderate 4-6) Oxycodone/Acetaminophen (Percocet 325-5 Mg) 2 tab PO Q4H PRN PRN Reason: Pain (moderate 4-6) Last Admin: 12/11/19 12:12 Dose: 2 tab Documented by: Prenat Multivit/[place]/Iron/Folic Ac ( Plus Iron) 1 each PO DAILY [facility] Last Admin: 12/11/19 08:16 Dose: 1 each Documented by: Simethicone (Simethicone) 160 mg PO QID [facility] Last Admin: 12/11/19 12:14 Dose: 160 mg Documented by: Sodium Chloride (Saline Flush) 10 ml FLUSH ASDIRECTED PRN PRN Reason: Keep Vein Open - Interaction Disposition, : [place] transferred to [facility] Infant Interaction: Unable to Hold Infant at this Time Infant Feeding: Bottle Fed Support Person: Friend - Recovery Exam Fundal Tone: Firm Fundal Level: 2 Fingerbreadths Below Umbilicus Fundal Placement: Midline Lochia Amount: Small Lochia Color: Rubra/Red Perineum Description: Intact, Minimal Bruising/Swelling Episiotomy/Laceration: None Bladder Status: Indwelling Catheter in Place - Exam General: Alert, Oriented HEENT: Pupils Reactive Cardiovascular: Regular Rate, Regular Rhythm GI/Abdominal Exam: Soft, No Mass, Pelvis Stable Extremities: Pedal Edema (1+ bilaterally) Skin: Warm, Dry, Intact Wound/Incisions: Dressing Dry and Intact Neurological: No New Focal Deficit - Problem List & Annotations (1) History of section SNOMED Code(s): 697889544 Code(s): Z98.891 - HISTORY OF UTERINE SCAR FROM PREVIOUS SURGERY Status: Acute (2) History of pre-eclampsia in prior , currently in third trimester SNOMED Code(s): 732382850031499, 995561100991872 Code(s): O09.293 - SUPRVSN OF PREG W POOR REPRODCTV OR OBSTET HX, THIRD TRI Status: Acute (3) Drug use affecting in third trimester SNOMED Code(s): 92453946, 50036221, 845393907 Code(s): O99.323 - DRUG USE COMPLICATING , THIRD TRIMESTER Status: Acute (4) Gestational hypertension SNOMED Code(s): 377114013 Code(s): O13.9 - GESTATIONAL HTN W/O SIGNIFICANT PROTEINURIA, UNSP TRIMESTER Status: Acute (5) Anemia affecting in third trimester SNOMED Code(s): 25227358, 32766538 Code(s): O99.013 - ANEMIA COMPLICATING , THIRD TRIMESTER Status: Acute (6) Drug abuse SNOMED Code(s): 66457915 Code(s): F19.10 - OTHER PSYCHOACTIVE SUBSTANCE ABUSE, UNCOMPLICATED Status: Acute (7) No care in current SNOMED Code(s): 174494382 Code(s): O09.30 - SUPRVSN OF PREG W INSUFFICIENT ANTENAT CARE, UNSP TRIMESTER Status: Acute Qualifiers: Trimester: second trimester Qualified Code(s): O09.32 - Supervision of with insufficient care, second trimester (8) Hepatitis C antibody positive in blood SNOMED Code(s): 585417561 Code(s): R76.8 - OTHER SPECIFIED ABNORMAL IMMUNOLOGICAL FINDINGS IN SERUM Status: Acute (9) Status post section SNOMED Code(s): 113909224, 572514018 Code(s): Z98.891 - HISTORY OF UTERINE SCAR FROM PREVIOUS SURGERY Status: Acute - Problem List Review Problem List Initiated/Reviewed/Updated: Yes - My Orders Last 24 Hours: My Active Orders 12/11/19 05:40 HCV RNA BY PCR, QN RFX ROMELIA [REF] Routine RPR (SYPHILIS SERO) W/ RFLX [REF] Routine 12/11/19 07:43 Transfuse PRBC [Transfuse Red Blood Cells] [COMM] Routine - Assessment Assessment:: 29-year-old now G2P at 41w4d POD#1 s/p repeat section for active labor - Plan Plan:: 1. Continue routine cares 2. Baby transferred to NICU 3. Hemoglobin down to 6.8, due to combination of anemia of , appropriate intraoperative blood loss and hemo-concentration upon arrival to L&D. Will transfuse with 1 unit pRBCs and repeat CBC 6 hours after completion of transfusion 4. Anticipate discharge 12/10/2019 Dacia Yates MD
--- NOTE | 2019-12-11 23:20 | PCM.DCSUM1 ---
Discharge Summary - Hospital Course Diagnosis: Stroke: No - Discharge Data Discharge Date: 12/11/19 Discharge Disposition: Against Medical Advice 07 Condition: Undetermined - Referral to Home Health Primary Care Physician: Adrien Middleton MD - Discharge Diagnosis/Problem(s) (1) History of section SNOMED Code(s): 149358898 ICD Code: Z98.891 - HISTORY OF UTERINE SCAR FROM PREVIOUS SURGERY Status: Acute (2) History of pre-eclampsia in prior , currently in third trimester SNOMED Code(s): 190810613024890, 289690575076354 ICD Code: O09.293 - SUPRVSN OF PREG W POOR REPRODCTV OR OBSTET HX, THIRD TRI Status: Acute (3) Drug use affecting in third trimester SNOMED Code(s): 25620987, 36908722, 541394379 ICD Code: O99.323 - DRUG USE COMPLICATING , THIRD TRIMESTER Status: Acute (4) Gestational hypertension SNOMED Code(s): 385694820 ICD Code: O13.9 - GESTATIONAL HTN W/O SIGNIFICANT PROTEINURIA, UNSP TRIMESTER Status: Acute (5) Anemia affecting in third trimester SNOMED Code(s): 56455834, 17510403 ICD Code: O99.013 - ANEMIA COMPLICATING , THIRD TRIMESTER Status: Acute (6) Drug abuse SNOMED Code(s): 67842882 ICD Code: F19.10 - OTHER PSYCHOACTIVE SUBSTANCE ABUSE, UNCOMPLICATED Status: Acute (7) No care in current SNOMED Code(s): 735809879 ICD Code: O09.30 - SUPRVSN OF PREG W INSUFFICIENT ANTENAT CARE, UNSP TRIMESTER Status: Acute Qualifiers: Trimester: second trimester Qualified Code(s): O09.32 - Supervision of with insufficient care, second trimester (8) Hepatitis C antibody positive in blood SNOMED Code(s): 266727663 ICD Code: R76.8 - OTHER SPECIFIED ABNORMAL IMMUNOLOGICAL FINDINGS IN SERUM Status: Acute (9) Status post section SNOMED Code(s): 751275100, 590496320 ICD Code: Z98.891 - HISTORY OF UTERINE SCAR FROM PREVIOUS SURGERY Status: Acute - Patient Summary/Data Consults: Consultations 12/10/19 04:30 Consult to Case Management/Enamel Dipper [CONS] Routine - Discharge Plan *PRESCRIPTION DRUG MONITORING PROGRAM REVIEWED*: Not Applicable *COPY OF PRESCRIPTION DRUG MONITORING REPORT IN PATIENT REILLY: Not Applicable - Discharge Summary/Plan Comment DC Time >30 min.: No Discharge Summary/Plan Comment: Patient left AMA today. IV was removed. Stephanie remain intact over incision. Patient advised to follow-up for staple removal. Dacia Yates MD - Review of Systems Cardiovascular: Reports: No Symptoms - Patient Data Vitals - Most Recent: Last Vital Signs Temp 37.2 C 12/11/19 11:27 Pulse 52 L 12/11/19 11:27 Resp 16 12/11/19 11:27 BP 104/75 12/11/19 11:27 Pulse Ox 99 12/11/19 11:27 Weight - Most Recent: 104.326 kg I&O - Last 24 hours: Intake & Output 12/11/19 12/11/19 12/12/19 14:59 22:59 06:59 Intake Total 390 Output Total 1280 Balance -890 Lab Results - Last 24 hrs: Laboratory Results - last 24 hr 12/10/19 12/11/19 Range/Units 04:20 05:40 WBC 6.7 (5.0-10.0) 10^3/uL RBC 3.17 L (4.2-5.4) 10^6/uL Hgb 6.8 L* D (12.0-16.0) g/dL Hct 22.4 L (37.0-47.0) % MCV 70.7 L (80-100) fL MCH 21.5 L (27.0-34.0) pg MCHC 30.4 L (33.0-35.0) g/dL Plt Count 330 (150-450) 10^3/uL Blood Type O POSITIVE Gel Antibody Screen Negative Crossmatch See Detail Med Orders - Current: Current Medications Discontinued Medications Acetaminophen (Tylenol) 650 mg PO Q6H PRN PRN Reason: mild pain or fever Ascorbic Acid (Vitamin C) 500 mg PO DAILY [facility] Last Admin: 12/11/19 08:16 Dose: 500 mg Documented by: Carboprost Tromethamine (Hemabate Ds) 250 mcg IM ONETIME PRN PRN Reason: Bleeding Citric Acid/Sodium Citrate (Bicitra Solution) 30 ml PO ONETIME ONE Stop: 12/10/19 04:31 Last Admin: 12/10/19 19:39 Dose: Not Given Documented by: Diphenhydramine HCl (Benadryl) 25 mg IVPUSH Q6H PRN PRN Reason: Itching or Nausea Docusate Sodium (Colace) 100 mg PO Q12H PRN PRN Reason: Constipation Last Admin: 12/11/19 08:16 Dose: 100 mg Documented by: Ephedrine Sulfate (Ephedrine Sulfate) 5 mg IVPUSH SEECOMMENT PRN PRN Reason: Other Ferrous Sulfate (Ferrous Sulfate) 325 mg PO BIDMEALS [facility] Last Admin: 12/11/19 08:16 Dose: 325 mg Documented by: Oxytocin/Sodium Chloride (Pitocin In Ns 30 Unit/500 Ml) Confirm Administered Dose 60 unit in 1,000 mls @ as directed .ROUTE .STK-MED ONE Stop: 12/10/19 04:29 Lactated Ringer's (Ringers, Lactated) 1,000 mls @ 125 mls/hr IV ASDIRECTED [facility] Lactated Ringer's (Ringers, Lactated) 1,000 mls @ 500 mls/hr IV .[place] Tranexamic Acid 1,000 mg/ (Sodium Chloride) 110 mls @ 660 mls/hr IV ONETIME PRN PRN Reason: Bleeding Oxytocin/Sodium Chloride (Pitocin In Ns 30 Unit/500 Ml) 30 unit in 500 mls @ 2 mls/hr IV TITRATE DIEGO; Protocol Last Titration: 12/10/19 09:15 Dose: 0 munits/min, 0 mls/hr Documented by: Cefazolin Sodium/Dextrose 2 gm (/ Premix) 50 mls @ 100 mls/hr IV ONETIME ONE Stop: 12/10/19 04:59 Last Admin: 12/10/19 05:16 Dose: 100 mls/hr Documented by: Lactated Ringer's (Ringers, Lactated) 1,000 mls @ 125 mls/hr IV ASDIRECTED [place] Last Admin: 12/11/19 04:17 Dose: 125 mls/hr Documented by: Oxytocin/Sodium Chloride (Pitocin In Ns 30 Unit/500 Ml) 30 unit in 500 mls @ as directed IV .STK-MED ONE Stop: 12/11/19 09:40 Ibuprofen (Motrin) 800 mg PO Q8H PRN PRN Reason: mild pain or fever Last Admin: 12/11/19 08:18 Dose: 800 mg Documented by: Ketorolac Tromethamine (Toradol) 15 mg IVPUSH Q6H [facility] Stop: 12/10/19 18:46 Last Admin: 12/10/19 16:18 Dose: Not Given Documented by: Ketorolac Tromethamine (Toradol) 15 mg IVPUSH Q6H [facility] Stop: 12/11/19 00:01 Last Admin: 12/11/19 00:13 Dose: 15 mg Documented by: Methylergonovine Maleate (Methergine) 0.2 mg IM ONETIME PRN PRN Reason: Excessive Vaginal Bleeding Misoprostol (Cytotec) 800 mcg RECTAL ASDIRECTED PRN PRN Reason: Excessive bleeding Naloxone HCl (Narcan) 0.1 mg IVPUSH SEECOMMENT PRN PRN Reason: Respiratory Depression Ondansetron HCl (Zofran) 4 mg IVPUSH Q4H PRN PRN Reason: Nausea/Vomiting Oxycodone/Acetaminophen (Percocet 325-5 Mg) 1 tab PO Q4H PRN PRN Reason: Pain (moderate 4-6) Oxycodone/Acetaminophen (Percocet 325-5 Mg) 2 tab PO Q4H PRN PRN Reason: Pain (moderate 4-6) Last Admin: 12/11/19 12:12 Dose: 2 tab Documented by: Prenat Multivit/[employer]ific [employer]/Iron/Folic Ac ( Plus Iron) 1 each PO DAILY [facility] Last Admin: 12/11/19 08:16 Dose: 1 each Documented by: Simethicone (Simethicone) 160 mg PO QID [facility] Last Admin: 12/11/19 12:14 Dose: 160 mg Documented by: Sodium Chloride (Saline Flush) 10 ml FLUSH ASDIRECTED PRN PRN Reason: Keep Vein Open
== END 2019-12-11 15:15 | disposition left against medical advice (07) | DRG 787 ==
LOC: DL.OBCHECK 03:16 → DL.OB 05:10 → OBSVTOIN 05:54
PROVIDERS: ADMIT Family Medicine; ATTEND Family Medicine
PROC: 10D00Z1 Extraction of Products of Conception, Low, Open Approach (ICD-10-PCS; principal; 2019-12-10)
DX: O48.0 Post-term pregnancy (principal); O99.324 Drug use complicating childbirth; O34.211 Maternal care for low transverse scar from previous cesarean delivery; F15.10 Other stimulant abuse, uncomplicated; O13.4 Gestational [pregnancy-induced] hypertension without significant proteinuria, complicating childbirth; O99.02 Anemia complicating childbirth; Z20.828 Contact with and (suspected) exposure to other viral communicable diseases; D64.9 Anemia, unspecified; Z37.0 Single live birth; Z3A.41 41 weeks gestation of pregnancy
CPT/HCPCS: 36415; 36430; 59409; 80305-QW; 81001; 82565; 82570; 83615; 84156; 84450; 84460; 84520; 84550; 85027; 86592; 86850; 86900; 86901; 86920; 86922; 87522; A9270-GY; J0690; J1100; J1885; J2274; J2405; J2590; J7050; J7120; P9016; U0002

== ENCOUNTER 2019-12-15 22:35 | Emergency (ER) | payer MEDICAID, OTHER ==
--- NOTE | 2019-12-15 23:53 | EDM.PDOC ---
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 [No Known Home Meds] 12/15/19 [History] Past Medical History - Past Health History Medical/Surgical History: Denies Medical/Surgical History Other HEENT History: WEARS GLASSES Cardiovascular History: Reports: Arrhythmia GREEN PLUMBER History: Reports: , Other (See Below) Other GREEN PLUMBER History: pcs Neurological History: Reports: Seizure Psychiatric History: Reports: Anxiety Hematologic History: Reports: Anemia Other Dermatologic History: SKIN GRAFT TO LEFT LEG - Infectious Disease History Infectious Disease History: Reports: Hepatitis C - Past Surgical History Female Surgical History: Reports: Section Social & Family History - Family History Family Medical History: Noncontributory - Tobacco Use Smoking Status *Q: Current Every Day Smoker Years of Tobacco use: 8 Packs/Tins Daily: 0.2 - Caffeine Use Caffeine Use: Reports: None - Recreational Drug Use Recreational Drug Use: No - Living Situation & Occupation Living situation: Reports: with Significant Other Occupation: Unemployed ED ROS GENERAL - Review of Systems Review Of Systems: Comprehensive ROS is negative, except as noted in HPI. ED EXAM - Physical Exam Exam: Not Obtained Course - Vital Signs Last Recorded V/S: Last Vital Signs Temp 37.7 C 12/15/19 22:40 Pulse 79 12/15/19 22:40 Resp 18 12/15/19 22:40 BP 149/102 H 12/15/19 22:40 Pulse Ox 100 12/15/19 22:40 Departure - Departure Time of Disposition: 23:52 Disposition: Home, Self-Care 01 Condition: Good Clinical Impression: Vaginal bleeding - Discharge Information Additional Instructions: 1) avoid bending lifting straining 2) follow up at clinic Sepsis Event Note (ED) - Evaluation Sepsis Screening Result: No Definite Risk - Focused Exam Vital Signs: Vital Signs Temp Pulse Resp BP Pulse Ox 12/15/19 22:40 37.7 C 79 18 149/102 H 100
[2019-12-16 00:27] VITALS: BP 118/82; PULSE 72
--- NOTE | 2019-12-16 01:57 | CONS ---
SERVICE DATE: 12/15/2019 INDICATION FOR CONSULTATION: Vaginal bleeding. HISTORY OF PRESENT ILLNESS: A 29-year-old female, 5 days postop from an uncomplicated repeat low transverse section. The patient's postoperative hemoglobin was 6.8 and she was transfused 1 unit of blood. However, left the hospital AMA before further lab or evaluation could be performed. She is denying any fever, chills, uterine tenderness, foul-smelling drainage, but reports that a couple of hours prior to presentation to the emergency department, she had heavy vaginal bleeding with clots and passage of some clear sticky like tissue. No purulent drainage or discharge. No fragments of red tissue that could represent placenta or amniotic fluid sac, and otherwise reports that she is doing fine. Denies any chest pain, shortness of breath, lightheadedness, headaches, or blurry vision. Past medical, surgical, social, and family histories can be reviewed in her charts from her labor and delivery admission. Details were not reviewed at this time. PHYSICAL EXAMINATION: Vital Signs: Temperature is 100.0, pulse 79, blood pressure 149/102, 118/80, respiratory rate of 18, and O2 saturations 100% on room air. Repeat vitals improved. Abdomen: Focused abdominal exam, positive bowel sounds throughout. Incision site is clean, dry, and intact with mansoor in place. Nurses reported removing a bloody dressing, which was replaced with a clean one. There is no erythema, no drainage, and no dehiscence of the abdominal wound. Genitourinary: Speculum exam reveals a small amount of dark brown blood present in the vaginal vault. Cervix is closed. I did remove some mucousy drainage from the cervical os. No signs of any tissue and no active bleeding at this time. Bimanual exam: Uterus is decreasing in size, approximately 8 week to 10 week size consistent with being 5 days postoperative. Bedside ultrasound, uterus shows about 2.5 cm of debris inside the uterus consistent also with uterus and not anything pathological at this time. Extremities: No edema, erythema noted. The patient is able to ambulate without any difficulties. Skin: Mild pallor. ASSESSMENT: Vaginal bleeding, 5 days postoperative section. PLAN: Discussed with ER provider from the bleeding standpoint, the patient appears stable. She needs to monitor for any signs or symptoms of uterine tenderness, fever, chills, foul-smelling drainage, discharge, or other severe heavy bleeding. Educated the patient that since she left the hospital AMA on postoperative day 1, she was not here for the routine fundal massages and so forth to monitor her bleeding, and therefore probably was able to build up some old blood and clots in the uterus, which now have started passing spontaneously and basically all at once. The patient had her questions answered and there were no other concerns verbalized. [facility] /[id number]
== END 2019-12-16 00:10 | disposition home or self-care (01) ==
LOC: DL.ED 22:35
DX: O72.2 Delayed and secondary postpartum hemorrhage (principal); O99.335 Smoking (tobacco) complicating the puerperium; F17.210 Nicotine dependence, cigarettes, uncomplicated; Z88.1 Allergy status to other antibiotic agents
CPT/HCPCS: 99282; 99283

== ENCOUNTER 2020-01-16 11:37 | Emergency (ER) | payer MEDICAID, OTHER ==
[2020-01-16] MEDS ORDERED: Sodium Chloride 0.9% 10 ML Syringe FLUSH PRN (12:01)
[2020-01-16 12:38] LABS: ACETAMINOPHEN 0 ug/mL (10-30 (Therapeutic)); ANION GAP 13.4 mEq/L (7-13); CHLORIDE,CL 102 mmol/L (98-107); SODIUM,NA 139 mmol/L (136-145)
[2020-01-16] MEDS ORDERED: cefTRIAXone 1 GM in Sodium Chloride 0.9% 50 ML IV ONE (15:28)
--- NOTE | 2020-01-16 15:32 | EDM.PDOC ---
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: Drug or Alcohol Abuse Stated Complaint: opioid OD Time Seen by Provider: 01/16/20 11:38 Source of Information: Reports: Patient History Limitations: Reports: No Limitations - History of Present Illness INITIAL COMMENTS - FREE TEXT/NARRATIVE: Patient comes emergency department today by ambulance with concerns of an opioid overdose. This patient is chronic IV drug user who uses methamphetamines and multiple other opiates with her chronic substance abuse. She used methamphetamines a couple of days ago. Earlier prior to arrival the patient injected what she was told to be a 30 mg oxycodone. Shortly thereafter her family found her unresponsive agonal respirations. The family member picked her up through her in the back of a pickup and drove her to the ambulance [facility]. Upon arrival there the patient was unresponsive with agonal respirations no cyanosis and had a good strong pulse. She was given Narcan with resolution of her symptoms. Upon arrival the patient really has no complaints. She is not confused. She has no chest pain no shortness of breath or difficulty breathing. No cough or congestion. No abdominal pain. No nausea no vomiting. No withdrawal type symptoms. No COVID exposure no COVID symptoms. - Related Data Allergies Allergy/AdvReac Type Severity Reaction Status Date / Time amoxicillin [Amoxicillin] Allergy Hives Verified 12/15/19 22:59 Home Meds: Home Meds . [No Known Home Meds] 12/15/19 [History] Past Medical History - Past Health History Medical/Surgical History: Denies Medical/Surgical History Other HEENT History: WEARS GLASSES Cardiovascular History: Reports: Arrhythmia Respiratory History: Reports: None Gastrointestinal History: Reports: None CARE NAVIGATOR History: Reports: , Other (See Below) Other CARE NAVIGATOR History: pcs Musculoskeletal History: Reports: None Neurological History: Reports: Seizure Psychiatric History: Reports: Anxiety Endocrine/Metabolic History: Reports: None Hematologic History: Reports: Anemia Immunologic History: Reports: None Oncologic (Cancer) History: Reports: None Other Dermatologic History: SKIN GRAFT TO LEFT LEG - Infectious Disease History Infectious Disease History: Reports: None - Past Surgical History Head Surgeries/Procedures: Reports: None Female Surgical History: Reports: Section Social & Family History - Family History Family Medical History: Noncontributory - Tobacco Use Smoking Status *Q: Current Every Day Smoker Years of Tobacco use: 10 Packs/Tins Daily: 0.5 - Caffeine Use Caffeine Use: Reports: Coffee, Energy Drinks, Soda - Recreational Drug Use Recreational Drug Use: Yes Drug Use in Last 12 Months: Yes Recreational Drug Type: Reports: Fentanyl, Oxycodone Recreational Drug Use Frequency: Daily - Living Situation & Occupation Living situation: Reports: with Significant Other Occupation: Unemployed ED ROS GENERAL - Review of Systems Review Of Systems: Comprehensive ROS is negative, except as noted in HPI. - Physical Exam Exam: See Below Text/Narrative:: This patient is awake and alert not drowsy no confusion disorientation lethargy or obtundation. She is tearful remorseful and states multiple time that she is scared about her usage. Exam Limited By: No Limitations General Appearance: Alert, WD/WN, No Apparent Distress Eye Exam: Bilateral Eye: EOMI, PERRL Ears: Normal External Exam Nose: Normal Inspection Throat/Mouth: Normal Inspection Head Exam: Atraumatic, Normocephalic Neck: Normal Inspection, Supple Respiratory/Chest: No Respiratory Distress, Lungs Clear, Normal Breath Sounds, No Accessory Muscle Use, Chest Non-Tender Cardiovascular: Normal Peripheral Pulses, Regular Rate, Rhythm GI/Abdominal: Normal Bowel Sounds, Soft, Non-Tender (Female) Exam: Deferred Rectal (Female) Exam: Deferred Neuro Exam (Abbreviated): Alert, Oriented, CN II-XII Intact, Normal Cognition, Normal Reflexes, No Motor/Sensory Deficits Back Exam: Normal Inspection, Full Range of Motion Extremities: Normal Inspection, Normal Range of Motion, Normal Capillary Refill Psychiatric: Normal Affect, Normal Mood Skin Exam: Warm, Dry, Intact, Normal Color, No Rash EKG INTERPRETATION EKG Date: 01/16/20 Time: 12:14 Rhythm: NSR Rate (Beats/Min): 94 [place]: Normal P-Wave: Present QRS: Normal ST-T: Normal QT: Normal Course - Vital Signs Last Recorded V/S: Last Vital Signs Temp 98.5 F 01/16/20 16:40 Pulse 75 01/16/20 16:40 Resp 18 01/16/20 16:40 BP 115/54 L 01/16/20 16:40 Pulse Ox 100 01/16/20 15:00 - Orders/Labs/Meds Orders: Active Orders 24 hr Category Date Time Status CULTURE URINE [RM] Stat Lab 01/16/20 11:32 Results Blood Transfusion Reflex Orders [OM.PC] Routine Oth 01/16/20 12:50 Ordered Peripheral IV Insertion Adult [OM.PC] Stat Ot 01/16/20 12:01 Ordered Labs: Laboratory Tests 01/16/20 01/16/20 01/16/20 Range/Units 11:32 11:32 12:11 WBC 5.9 (5.0-10.0) 10^3/uL RBC 3.46 L (4.2-5.4) 10^6/uL Hgb 6.7 L* (12.0-16.0) g/dL Hct 24.0 L (37.0-47.0) % MCV 69.4 L (80-100) fL MCH 19.4 L (27.0-34.0) pg MCHC 27.9 L (33.0-35.0) g/dL Plt Count 629 H D (150-450) 10^3/uL Neut % (Auto) 84.0 H (42.2-75.2) % Lymph % (Auto) 12.2 L (20.5-50.1) % [place] % (Auto) 3.6 (2-8) % Eos % (Auto) 0.0 L (1.0-3.0) % Baso % (Auto) 0.2 (0.0-1.0) % Sodium (136-145) mmol/L Potassium (3.5-5.1) mmol/L Chloride (98-107) mmol/L Carbon Dioxide (21-32) mmol/L Anion Gap (7-13) mEq/L BUN (7-18) mg/dL Creatinine (0.55-1.02) mg/dL Est Cr Clr Drug Dosing mL/min Estimated GFR (MDRD) BUN/Creatinine Ratio (No establ ref range) Glucose (74-99) mg/dL Calcium (8.5-10.1) mg/dL Iron (50-175) ug/dL TIBC (250-450) ug/dL % Saturation (20.0-50.0) % Ferritin (8-252) mg/mL Total Bilirubin (0.2-1.0) mg/dL AST (15-37) U/L ALT (14-59) U/L Alkaline Phosphatase (46-116) U/L Troponin I (0.000-0.056) ng/mL Total Protein (6.4-8.2) g/dL Albumin (3.4-5.0) g/dL Globulin Albumin/Globulin Ratio Folate (8.6-58.9) ng/mL Urine Color Dark yellow (YELLOW) Urine Appearance Slightly cloudy (CLEAR) Urine pH 6.0 (5.0-9.0) Ur Specific [place] >= 1.030 (1.005-1.030) Urine Protein 100 H (NEGATIVE) Urine Glucose (UA) Negative (NEGATIVE) Urine Ketones Negative (NEGATIVE) Urine Occult Blood Trace-intact H (NEGATIVE) Urine Nitrite Negative (NEGATIVE) Urine Bilirubin Negative (NEGATIVE) Urine Urobilinogen 1.0 (0.2-1.0) mg/dL Ur Leukocyte Esterase Trace H (NEGATIVE) Urine RBC 5-10 H /HPF Urine WBC 20-30 H (0-5/HPF) /HPF Ur Epithelial Cells Moderate H (NOT SEEN) /HPF Amorphous Sediment Few (NOT SEEN) /HPF Urine Bacteria Moderate H (0-FEW/HPF) /HPF Urine Mucus Many H (NOT SEEN) /LPF Salicylates (2.8-20(Therapeutic)) mg/dL Urine Opiates Screen Positive H (NEGATIVE) Ur Oxycodone Screen Positive H (NEGATIVE) Urine Methadone Screen Negative (NEGATIVE) Acetaminophen (10-30 (Therapeutic)) ug/mL Ur Barbiturates Screen Negative (NEGATIVE) U Tricyclic Antidepress Negative (NEGATIVE) Ur Phencyclidine Scrn Negative (NEGATIVE) Ur Amphetamine Screen Positive H (NEGATIVE) U Methamphetamines Scrn Positive H (NEGATIVE) Urine MDMA Screen Positive H (NEGATIVE) U Benzodiazepines Scrn Negative (NEGATIVE) Urine Cocaine Screen Negative (NEGATIVE) U Marijuana (THC) Screen Negative (NEGATIVE) Ethyl Alcohol (0) mg/dL Blood Type Gel Antibody Screen Crossmatch 01/16/20 01/16/20 01/16/20 Range/Units 12:11 12:11 12:11 WBC (5.0-10.0) 10^3/uL RBC (4.2-5.4) 10^6/uL Hgb (12.0-16.0) g/dL Hct (37.0-47.0) % MCV (80-100) fL MCH (27.0-34.0) pg MCHC (33.0-35.0) g/dL Plt Count (150-450) 10^3/uL Neut % (Auto) (42.2-75.2) % Lymph % (Auto) (20.5-50.1) % [place] % (Auto) (2-8) % Eos % (Auto) (1.0-3.0) % Baso % (Auto) (0.0-1.0) % Sodium 139 (136-145) mmol/L Potassium 4.4 (3.5-5.1) mmol/L Chloride 102 (98-107) mmol/L Carbon Dioxide 28 (21-32) mmol/L Anion Gap 13.4 H (7-13) mEq/L BUN 7 (7-18) mg/dL Creatinine 0.81 (0.55-1.02) mg/dL Est Cr Clr Drug Dosing 97.86 mL/min Estimated GFR (MDRD) > 60 BUN/Creatinine Ratio 8.6 (No establ ref range) Glucose 105 H (74-99) mg/dL Calcium 8.4 L (8.5-10.1) mg/dL Iron (50-175) ug/dL TIBC (250-450) ug/dL % Saturation (20.0-50.0) % Ferritin (8-252) mg/mL Total Bilirubin 0.2 (0.2-1.0) mg/dL AST 15 (15-37) U/L ALT 18 (14-59) U/L Alkaline Phosphatase 165 H (46-116) U/L Troponin I 0.033 (0.000-0.056) ng/mL Total Protein 7.4 (6.4-8.2) g/dL Albumin 2.7 L (3.4-5.0) g/dL Globulin 4.7 Albumin/Globulin Ratio 0.57 Folate 15.8 (8.6-58.9) ng/mL Urine Color (YELLOW) Urine Appearance (CLEAR) Urine pH (5.0-9.0) Ur Specific [place] (1.005-1.030) Urine Protein (NEGATIVE) Urine Glucose (UA) (NEGATIVE) Urine Ketones (NEGATIVE) Urine Occult Blood (NEGATIVE) Urine Nitrite (NEGATIVE) Urine Bilirubin (NEGATIVE) Urine Urobilinogen (0.2-1.0) mg/dL Ur Leukocyte Esterase (NEGATIVE) Urine RBC /HPF Urine WBC (0-5/HPF) /HPF Ur Epithelial Cells (NOT SEEN) /HPF Amorphous Sediment (NOT SEEN) /HPF Urine Bacteria (0-FEW/HPF) /HPF Urine Mucus (NOT SEEN) /LPF Salicylates < 2.8 L (2.8-20(Therapeutic)) mg/dL Urine Opiates Screen (NEGATIVE) Ur Oxycodone Screen (NEGATIVE) Urine Methadone Screen (NEGATIVE) Acetaminophen 0 L (10-30 (Therapeutic)) ug/mL Ur Barbiturates Screen (NEGATIVE) U Tricyclic Antidepress (NEGATIVE) Ur Phencyclidine Scrn (NEGATIVE) Ur Amphetamine Screen (NEGATIVE) U Methamphetamines Scrn (NEGATIVE) Urine MDMA Screen (NEGATIVE) U Benzodiazepines Scrn (NEGATIVE) Urine Cocaine Screen (NEGATIVE) U Marijuana (THC) Screen (NEGATIVE) Ethyl Alcohol < 3 (0) mg/dL Blood Type O POSITIVE Gel Antibody Screen Negative Crossmatch See Detail 01/16/20 Range/Units 12:11 WBC (5.0-10.0) 10^3/uL RBC (4.2-5.4) 10^6/uL Hgb (12.0-16.0) g/dL Hct (37.0-47.0) % MCV (80-100) fL MCH (27.0-34.0) pg MCHC (33.0-35.0) g/dL Plt Count (150-450) 10^3/uL Neut % (Auto) (42.2-75.2) % Lymph % (Auto) (20.5-50.1) % [place] % (Auto) (2-8) % Eos % (Auto) (1.0-3.0) % Baso % (Auto) (0.0-1.0) % Sodium (136-145) mmol/L Potassium (3.5-5.1) mmol/L Chloride (98-107) mmol/L Carbon Dioxide (21-32) mmol/L Anion Gap (7-13) mEq/L BUN (7-18) mg/dL Creatinine (0.55-1.02) mg/dL Est Cr Clr Drug Dosing mL/min Estimated GFR (MDRD) BUN/Creatinine Ratio (No establ ref range) Glucose (74-99) mg/dL Calcium (8.5-10.1) mg/dL Iron 12 L (50-175) ug/dL TIBC 400 (250-450) ug/dL % Saturation 3.0 L (20.0-50.0) % Ferritin 17 (8-252) mg/mL Total Bilirubin (0.2-1.0) mg/dL AST (15-37) U/L ALT (14-59) U/L Alkaline Phosphatase (46-116) U/L Troponin I (0.000-0.056) ng/mL Total Protein (6.4-8.2) g/dL Albumin (3.4-5.0) g/dL Globulin Albumin/Globulin Ratio Folate (8.6-58.9) ng/mL Urine Color (YELLOW) Urine Appearance (CLEAR) Urine pH (5.0-9.0) Ur Specific [place] (1.005-1.030) Urine Protein (NEGATIVE) Urine Glucose (UA) (NEGATIVE) Urine Ketones (NEGATIVE) Urine Occult Blood (NEGATIVE) Urine Nitrite (NEGATIVE) Urine Bilirubin (NEGATIVE) Urine Urobilinogen (0.2-1.0) mg/dL Ur Leukocyte Esterase (NEGATIVE) Urine RBC /HPF Urine WBC (0-5/HPF) /HPF Ur Epithelial Cells (NOT SEEN) /HPF Amorphous Sediment (NOT SEEN) /HPF Urine Bacteria (0-FEW/HPF) /HPF Urine Mucus (NOT SEEN) /LPF Salicylates (2.8-20(Therapeutic)) mg/dL Urine Opiates Screen (NEGATIVE) Ur Oxycodone Screen (NEGATIVE) Urine Methadone Screen (NEGATIVE) Acetaminophen (10-30 (Therapeutic)) ug/mL Ur Barbiturates Screen (NEGATIVE) U Tricyclic Antidepress (NEGATIVE) Ur Phencyclidine Scrn (NEGATIVE) Ur Amphetamine Screen (NEGATIVE) U Methamphetamines Scrn (NEGATIVE) Urine MDMA Screen (NEGATIVE) U Benzodiazepines Scrn (NEGATIVE) Urine Cocaine Screen (NEGATIVE) U Marijuana (THC) Screen (NEGATIVE) Ethyl Alcohol (0) mg/dL Blood Type Gel Antibody Screen Crossmatch Meds: Medications Discontinued Medications Generic Name Dose Route Start Last Admin Trade Name Freq PRN Reason Stop Dose Admin Ceftriaxone Sodium 1 gm/ 50 mls @ 100 mls/hr 01/16/20 15:28 01/16/20 17:11 Sodium Chloride IV 01/16/20 15:57 100 mls/hr ONETIME ONE Administration Sodium Chloride 10 ml 01/16/20 12:01 Saline Flush FLUSH ASDIRECTED PRN Keep Vein Open - Re-Assessments/Exams Free Text/Narrative Re-Assessment/Exam: We attempted multiple times to get an IV without success. Labs are drawn. EKG is unremarkable. Her hemoglobin is quite low at 6.8. She does have a history of anemia. She had a child just a couple of months ago. By . She still has the mansoor in her abdomen from her as she never went back to get followed up. Was typed and screened and 1 unit of packed RBCs was ordered for the iron deficiency anemia which is clearly identified through the laboratory evaluation. Urine drug screen is positive for oxycodone and amphetamines methamphetamines and MDMA. Urine drug screen is clearly infectious urine culture pending. Ceftriaxone 1 g IV piggyback. The patient was sent to the floor for extended ER for the infusion of her RBCs. Was monitored over the next 4 to 5 hours without any change in her mentation. She was alert and appropriate the entire time. She did eat food as well. I had a rather long candid conversation with this patient who is covered with track jonas up and down primarily her right arm that she was near to today. She has a new child. Her family has been on her today that she needs to get the treatment otherwise or get a file to remove her kids from the home. She knows that what happened today was very dangerous. This was not intentional for her to overdose. She denies any suicidal or homicidal ideation. We will start her on Keflex for urinary tract infection. We will also start her on iron supplementation. She needs to follow-up with primary care for long-term management strategy for her anemia. Referral information was given to her to the human service [place] to assist with her substance abuse. Her mansoor in her abdomen that showed a well-healed and approximated noninfectious appearing C- section incision were removed without difficulty. Discharge directions as below are explained to the patient she was comfortable with this plan and her questions are answered. Departure - Departure Time of Disposition: 14:30 Disposition: Home, Self-Care 01 Clinical Impression: Drug dependence, Removal of mansoor Opiate overdose Qualifiers: Encounter type: initial encounter Injury intent: accidental or unintentional Qualified Code(s): T40.601A - Poisoning by unspecified narcotics, accidental (unintentional), initial encounter Iron deficiency anemia Qualifiers: Iron deficiency anemia type: unspecified iron deficiency Qualified Code(s): D50.9 - Iron deficiency anemia, unspecified UTI (urinary tract infection) Qualifiers: Urinary tract infection type: site unspecified Hematuria presence: with hematuria Qualified Code(s): N39.0 - Urinary tract infection, site not specified - Discharge Information Instructions: Antibiotic Medicine, Adult, [id number], Urinary Tract Infection, Adult, [id number], Opioid Overdose Forms: ED Department Discharge Additional Instructions: You must stop the usage of recreation drugs. They can and almost killed you today. Please seek assistance and treatment with with your PCP or the human service center. Cephalexin 1 capsule 4 times a day for the next 7 days. RX given to you. Start Iron supplementation as well for your hemoglobin. 1 tablet daily for the next 30 days. RX given to you. Return to the ED if new or worsening symptoms. Recheck with PCP in 1 week for recheck and plan for managing your anemia and discuss treatment options. Sepsis Event Note (ED) - Evaluation Sepsis Screening Result: No Definite Risk - My Orders Last 24 Hours: My Active Orders 01/16/20 11:32 CULTURE URINE [RM] Stat 01/16/20 12:01 Peripheral IV Insertion Adult [OM.PC] Stat 01/16/20 12:50 Blood Transfusion Reflex Orders [OM.PC] Routine - Assessment/Plan Last 24 Hours: My Active Orders 01/16/20 11:32 CULTURE URINE [RM] Stat 01/16/20 12:01 Peripheral IV Insertion Adult [OM.PC] Stat 01/16/20 12:50 Blood Transfusion Reflex Orders [OM.PC] Routine
[2020-01-16 16:41] VITALS: BP 115/54; PULSE 75
== END 2020-01-16 18:10 | disposition home or self-care (01) ==
LOC: DL.ED 11:37
DX: T40.601A Poisoning by unspecified narcotics, accidental (unintentional), initial encounter (principal); Z48.02 Encounter for removal of sutures; D50.9 Iron deficiency anemia, unspecified; N39.0 Urinary tract infection, site not specified; R31.9 Hematuria, unspecified; F17.210 Nicotine dependence, cigarettes, uncomplicated; Z88.0 Allergy status to penicillin
CPT/HCPCS: 36415; 36430; 80053; 80305; 80307; 81001; 82728; 82746; 83540; 83550; 84484; 85025; 86850; 86900; 86901; 86920; 86922; 87086; 93005; 96365; 99284; J0696; J7050; P9016

== ENCOUNTER 2020-05-13 20:00 | Emergency (ER) | payer MEDICAID, OTHER ==
[2020-05-13 20:10] VITALS: BP 127/77; PULSE 100
--- NOTE | 2020-05-13 20:33 | EDM.PDOCBH ---
<Alli Irvin Soraya - Last Filed: 05/13/20 20:38> 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: Behavioral/Psych Stated Complaint: CHEST PAINS, RAPID HEARTBEAT, DIZZY Time Seen by Provider: 05/13/20 20:32 Source of Information: Reports: Patient History Limitations: Reports: No Limitations - History of Present Illness INITIAL COMMENTS - FREE TEXT/NARRATIVE: 30 y/o F checked into ER for a panic attack. Upon entering ER pt states her panic attack had resolved and that she no longer wanted to be evaluated by a provider. At the time of assessment pt has no physical complaints or concerns and simply wants to go home. Onset: Today Duration: Minutes: Location: Reports: Generalized Improves with: Reports: Other (improved without intervention) Worsens with: Reports: None Associated Symptoms: Reports: No Other Symptoms - Related Data Allergies Allergy/AdvReac Type Severity Reaction Status Date / Time amoxicillin [Amoxicillin] Allergy Hives Verified 05/13/20 20:10 Home Meds: Home Meds . [No Known Home Meds] 12/15/19 [History] Past Medical History - Past Health History Medical/Surgical History: Denies Medical/Surgical History Other HEENT History: WEARS GLASSES Cardiovascular History: Reports: Arrhythmia Respiratory History: Reports: None Gastrointestinal History: Reports: None HEALTH DATA ADMINISTRATOR History: Reports: , Other (See Below) Other HEALTH DATA ADMINISTRATOR History: pcs Musculoskeletal History: Reports: None Neurological History: Reports: Seizure Psychiatric History: Reports: Anxiety, Panic Attack Endocrine/Metabolic History: Reports: None Hematologic History: Reports: Anemia Immunologic History: Reports: None Oncologic (Cancer) History: Reports: None Other Dermatologic History: SKIN GRAFT TO LEFT LEG - Infectious Disease History Infectious Disease History: Reports: None - Past Surgical History Head Surgeries/Procedures: Reports: None Female Surgical History: Reports: Section Social & Family History - Family History Family Medical History: No Pertinent Family History - Tobacco Use Tobacco Use Status *Q: Current Every Day Tobacco User Years of Tobacco use: 6 Packs/Tins Daily: 0.4 Second Hand Smoke Exposure: Yes - Caffeine Use Caffeine Use: Reports: Coffee, Energy Drinks, Soda - Recreational Drug Use Recreational Drug Use: Yes Drug Use in Last 12 Months: Yes Recreational Drug Type: Reports: Methamphetamine - Living Situation & Occupation Living situation: Reports: with Significant Other Occupation: Unemployed ED ROS GENERAL - Review of Systems Review Of Systems: Comprehensive ROS is negative, except as noted in HPI. ED EXAM, BEHAVIORAL HEALTH - Physical Exam Exam: Not Obtained (pts symptoms had resolved at the time of provider interaction and she no longer wanted to be assessed or in the Emergency room) Departure - Departure Time of Disposition: 20:32 Disposition: Home, Self-Care 01 Condition: Good Clinical Impression: Panic attack, Anxiety - Discharge Information *PRESCRIPTION DRUG MONITORING PROGRAM REVIEWED*: Not Applicable *COPY OF PRESCRIPTION DRUG MONITORING REPORT IN PATIENT REILLY: Not Applicable Instructions: Panic Attack, [id number] Referrals: Adrien Middleton MD [Primary Care Provider] - Forms: ED Department Discharge Sepsis Event Note (ED) - Evaluation Sepsis Screening Result: No Definite Risk <Shannan Herring - Last Filed: 05/13/20 21:39> COURSE, BEHAVIORAL HEALTH COMP - Course Vital Signs: Last Vital Signs Temp 98.7 F 05/13/20 20:03 Pulse 100 05/13/20 20:03 Resp 18 05/13/20 20:03 BP 127/77 05/13/20 20:03 Pulse Ox 100 05/13/20 20:03 Discharge vs Psych Eval/Treatment:: 05/13/20 21:39 I personally performed or re-performed the physical examination and medical decision making. I have verified all student documentation or findings, including history, physical exam and/or medical decision making. Sepsis Event Note (ED) - Focused Exam Vital Signs: Vital Signs Temp Pulse Resp BP Pulse Ox 05/13/20 20:03 98.7 F 100 18 127/77 100
== END 2020-05-13 20:40 | disposition home or self-care (01) ==
LOC: DL.ED 20:00
DX: F41.0 Panic disorder [episodic paroxysmal anxiety] (principal); Z88.0 Allergy status to penicillin; Z72.0 Tobacco use
CPT/HCPCS: 99283

== ENCOUNTER 2021-08-01 21:18 | Emergency (ER) | payer MEDICAID ==
[2021-08-01] MEDS ORDERED: Sodium Chloride 0.9% 10 ML Syringe FLUSH PRN (21:46)
[2021-08-01] MEDS ORDERED: Acetaminophen 500 MG Tab PO ONE (21:47)
[2021-08-01] MEDS ORDERED: Sodium Chloride 0.9% 1,000 ML IV ONE ×2 (21:48→23:08)
[2021-08-01] MEDS ORDERED: Ketorolac 30 MG/ML SDV IVPUSH ONE (21:48)
[2021-08-01 22:24] LABS: CORONAVIRUS COVID-19 NAA NEGATIVE (NEGATIVE)
[2021-08-01 22:41] LABS: ANION GAP 14.6 mEq/L (7-13); CHLORIDE,CL 97 mmol/L (98-107); SODIUM,NA 134 mmol/L (136-145)
[2021-08-01 23:58] LABS: AMPHETAMINES,URINE POSITIVE (NEGATIVE); BARBITURATES,URINE NEGATIVE (NEGATIVE); BENZODIAZEPINE,URINE NEGATIVE (NEGATIVE); MDMA (ECSTASY), URINE NEGATIVE (NEGATIVE); METHADONE,URINE NEGATIVE (NEGATIVE); METHAMPHETAMINES,URINE POSITIVE (NEGATIVE); OPIATES,URINE NEGATIVE (NEGATIVE); OXYCODONE,URINE POSITIVE (NEGATIVE); PHENCYCLIDINE,URINE NEGATIVE (NEGATIVE); TCA,URINE NEGATIVE (NEGATIVE)
[2021-08-02 00:47] VITALS: BP 112/62; PULSE 84
[2021-08-02] MEDS ORDERED: Levofloxacin/Dextrose 5%-Water 750 MG in Premix Bag 1 BAG IV ONE (00:52)
[2021-08-02] MEDS ORDERED: Sodium Chloride 0.9% 1,000 ML IV SCH (02:45)
== END 2021-08-02 03:01 | disposition critical access hospital (66) ==
LOC: DL.ED 21:18
DX: A41.9 Sepsis, unspecified organism (principal); J10.00 Influenza due to other identified influenza virus with unspecified type of pneumonia; Z88.0 Allergy status to penicillin; Z72.0 Tobacco use; Z20.822 Contact with and (suspected) exposure to COVID-19
CPT/HCPCS: 0240U; 36415; 71045; 80053; 80305; 80307; 81001; 83605; 83735; 84443; 84484; 84703; 85025; 86140; 87040; 87077; 87086; 87088; 87186; 93005; 96365; 96366; 96375; 99285; A9270; J1885; J1956; J3490; J7030; 93010; 99284

== ENCOUNTER 2021-08-13 22:58 | Emergency (ER) | payer MEDICAID ==
[2021-08-14 00:40] LABS: ANION GAP 12.7 mEq/L (7-13); CHLORIDE,CL 102 mmol/L (98-107); SODIUM,NA 138 mmol/L (136-145)
[2021-08-14] MEDS ORDERED: Iopamidol 612 MG/ML 100 ML Bottle IVPUSH ONE (01:14)
[2021-08-14 01:22] LABS: AMPHETAMINES,URINE POSITIVE (NEGATIVE); BARBITURATES,URINE NEGATIVE (NEGATIVE); BENZODIAZEPINE,URINE POSITIVE (NEGATIVE); MDMA (ECSTASY), URINE POSITIVE (NEGATIVE); METHADONE,URINE NEGATIVE (NEGATIVE); METHAMPHETAMINES,URINE POSITIVE (NEGATIVE); OPIATES,URINE NEGATIVE (NEGATIVE); OXYCODONE,URINE POSITIVE (NEGATIVE); PHENCYCLIDINE,URINE NEGATIVE (NEGATIVE); TCA,URINE NEGATIVE (NEGATIVE)
[2021-08-14] MEDS ORDERED: Iopamidol 755 Mg/ML 100 ML Bottle IVPUSH ONE (02:32)
[2021-08-14] MEDS ORDERED: Heparin Sodium 5,000 Units/ML Vial IVPUSH ONE (03:32)
[2021-08-14] MEDS ORDERED: Heparin Sodium/0.45% NaCl 25,000 UNITS/500 ML BAG IV SCH (03:45)
[2021-08-14] MEDS ORDERED: Heparin Sodium/0.45% NaCl 500 ML ONE (03:54)
[2021-08-14 04:34] VITALS: BP 102/91; PULSE 100
[2021-08-14 05:04] LABS: CORONAVIRUS COVID-19 NAA NEGATIVE (NEGATIVE); RESPIRATORY SYNCYTIAL VIR NAA NEGATIVE (NEGATIVE)
[2021-08-14] MEDS ORDERED: LORazepam 2 MG/ML SDV IVPUSH ONE (05:29)
[2021-08-14] MEDS ORDERED: LORazepam 2 MG/ML SDV ONE (05:34)
[2021-08-14] MEDS ORDERED: Sodium Chloride 0.9% 1,000 ML IV ONE (05:53)
== END 2021-08-14 06:09 ==
LOC: DL.ED 22:58
DX: I26.99 Other pulmonary embolism without acute cor pulmonale (principal); F19.90 Other psychoactive substance use, unspecified, uncomplicated; Z88.0 Allergy status to penicillin; Z88.1 Allergy status to other antibiotic agents; Z88.5 Allergy status to narcotic agent; Z88.6 Allergy status to analgesic agent; Z79.82 Long term (current) use of aspirin; Z72.0 Tobacco use; Z20.822 Contact with and (suspected) exposure to COVID-19
CPT/HCPCS: 0241U; 36415; 71260; 80053; 80305-QW; 81001; 83605; 85025; 85379; 85730; 93005; 93010; 96365; 96366; 96375; 99284; 99285-25; J1644; J2060; J7030; Q9967

== ENCOUNTER 2021-11-18 19:16 | Emergency (ER) | payer MEDICAID | END 2021-11-18 19:50 | disposition left against medical advice (07) | LOC: DL.ED 19:16 | DX: Z53.21 Procedure and treatment not carried out due to patient leaving prior to being seen by health care provider (principal) ==

== ENCOUNTER 2021-12-05 17:04 | Emergency (ER) | payer MEDICAID ==
[2021-12-05 17:15] VITALS: BP 137/86; PULSE 112
== END 2021-12-05 19:25 | disposition home or self-care (01) ==
LOC: DL.ED 17:04
DX: M25.562 Pain in left knee (principal); F17.210 Nicotine dependence, cigarettes, uncomplicated; Z88.0 Allergy status to penicillin; Z88.1 Allergy status to other antibiotic agents; Z88.5 Allergy status to narcotic agent; Z88.6 Allergy status to analgesic agent; Z88.8 Allergy status to other drugs, medicaments and biological substances; Z79.82 Long term (current) use of aspirin
CPT/HCPCS: 73562-LT; 99283

== ENCOUNTER 2023-10-07 14:37 | Emergency (ER) | payer MEDICAID | END 2023-10-07 15:19 | disposition left against medical advice (07) | LOC: DL.ED 14:37 | DX: Z53.21 Procedure and treatment not carried out due to patient leaving prior to being seen by health care provider (principal) ==

== ENCOUNTER 2023-10-31 02:48 | Emergency (ER) | payer MEDICAID ==
[2023-10-31 03:57] LABS: BASOPHILS PERCENT AUTO 0.4 % (0.0-1.0); HEMATOCRIT 31.6 % (37.0-47.0); HEMOGLOBIN 9.3 g/dL (12.0-16.0); MEAN CORPUSCULAR HEMOGLOBIN 18.8 pg (27.0-34.0); MEAN CORPUSCULAR HGB CONC 29.4 g/dL (33.0-35.0); MEAN CORPUSCULAR VOLUME 63.8 fL (80-100); MONOCYTES PERCENT AUTO 7.1 % (2-8); NEUTROPHILS PERCENT AUTO 55.5 % (42.2-75.2); PLATELET COUNT,PLT 536 10^3/uL (150-450); RED BLOOD CELL COUNT 4.95 10^6/uL (4.2-5.4); WHITE BLOOD CELL COUNT,WBC 5.1 10^3/uL (5.0-10.0)
[2023-10-31 03:59] VITALS: BP 137/92; PULSE 103
[2023-10-31 04:19] LABS: INR 0.9 (0.9-1.2); PROTHROMBIN TIME 9.3 SEC (9.0-12.0)
[2023-10-31 04:24] LABS: ALBUMIN 3.3 g/dL (3.4-5.0); ANION GAP 12.6 mEq/L (7-13); BILIRUBIN TOTAL 0.2 mg/dL (0.2-1.0); BUN/CREATININE RATIO 11.1 (No establ ref range); CALCIUM 8.4 mg/dL (8.5-10.1); CREATININE 0.81 mg/dL (0.55-1.02); EST CRCL DRUG DOSING (CG) 94.27 mL/min; MAGNESIUM 2.1 mg/dL (1.8-2.4); POTASSIUM,K 3.6 mmol/L (3.5-5.1); PROTEIN TOTAL,TP 7.3 g/dL (6.4-8.2)
[2023-10-31 04:30] LABS: A/G RATIO 0.83
[2023-10-31] MEDS: LORazepam 0.5 MG Tab PO ONE (05:11)
[2023-10-31 05:19] LABS: AMPHETAMINES,URINE POSITIVE (NEGATIVE); BARBITURATES,URINE NEGATIVE (NEGATIVE); BENZODIAZEPINE,URINE NEGATIVE (NEGATIVE); MDMA (ECSTASY), URINE POSITIVE (NEGATIVE); METHADONE,URINE NEGATIVE (NEGATIVE); METHAMPHETAMINES,URINE POSITIVE (NEGATIVE); OPIATES,URINE NEGATIVE (NEGATIVE); OXYCODONE,URINE NEGATIVE (NEGATIVE); PHENCYCLIDINE,URINE NEGATIVE (NEGATIVE); TCA,URINE NEGATIVE (NEGATIVE)
== END 2023-10-31 05:38 | disposition home or self-care (01) ==
LOC: DL.ED 02:48
DX: R07.89 Other chest pain (principal); F41.9 Anxiety disorder, unspecified; Z79.82 Long term (current) use of aspirin; Z79.899 Other long term (current) drug therapy; Z88.5 Allergy status to narcotic agent; Z88.8 Allergy status to other drugs, medicaments and biological substances; Z88.1 Allergy status to other antibiotic agents
CPT/HCPCS: 36415; 71046; 80053; 80305; 83690; 83735; 84484; 85025; 85379; 85610; 93005; 99285; A9270

== ENCOUNTER 2024-12-07 23:36 | Emergency (ER) | payer MEDICAID ==
[2024-12-08 00:02] VITALS: BP 125/104; PULSE 118
== END 2024-12-07 23:45 | disposition left against medical advice (07) ==
LOC: DL.ED 23:36
DX: Z53.21 Procedure and treatment not carried out due to patient leaving prior to being seen by health care provider (principal)

== ENCOUNTER 2025-02-06 11:30 | Observation (INO) | payer MEDICAID ==
[2025-02-06 12:17] LABS: BASOPHILS PERCENT AUTO 0.0 % (0.0-1.0); EOSINOPHILS PERCENT AUTO 0.0 % (1.0-3.0); LYMPHOCYTES PERCENT AUTO 28.9 % (20.5-50.1); MONOCYTES PERCENT AUTO 7.8 % (2-8); NEUTROPHILS PERCENT AUTO 63.3 % (42.2-75.2); PLATELET COUNT,PLT 370 10^3/uL (150-450); RED BLOOD CELL COUNT 4.63 10^6/uL (4.2-5.4); WHITE BLOOD CELL COUNT,WBC 4.1 10^3/uL (5.0-10.0)
[2025-02-06 12:35] LABS: A/G RATIO 0.8; ALANINE AMINOTRANSFERASE,ALT 67.0 U/L (14-59); ASPARTATE AMNIOTRANSFERASE,AST 48.0 U/L (15-37); BILIRUBIN TOTAL 0.4 mg/dL (0.2-1.0); BLOOD UREA NITROGEN,BUN 6.0 mg/dL (7-18); CARBON DIOXIDE,CO2 24.0 mmol/L (21-32); CHLORIDE,CL 103.0 mmol/L (98-107); CREATININE 0.65 mg/dL (0.55-1.02); EST CRCL DRUG DOSING (CG) 116.35 mL/min; ETHANOL BLOOD MEDICAL 117.0 mg/dL (0); GLUCOSE RANDOM 138.0 mg/dL (70-99); POTASSIUM,K 3.1 mmol/L (3.5-5.1); PROTEIN TOTAL,TP 7.8 g/dL (6.4-8.2); SODIUM,NA 141.0 mmol/L (136-145)
[2025-02-06 12:36] LABS: ESTIMATED GFR 117.0 mL/min (>=60)
[2025-02-06 12:49] LABS: APPEARANCE,URINE CLOUDY (CLEAR); GLUCOSE,URINE NEGATIVE (NEGATIVE); OCCULT BLOOD,URINE MODERATE (NEGATIVE)
[2025-02-06 12:54] LABS: AMPHETAMINES,URINE NEGATIVE (NEGATIVE); BARBITURATES,URINE NEGATIVE (NEGATIVE); MDMA (ECSTASY), URINE NEGATIVE (NEGATIVE); METHAMPHETAMINES,URINE NEGATIVE (NEGATIVE); OPIATES,URINE NEGATIVE (NEGATIVE); OXYCODONE,URINE NEGATIVE (NEGATIVE); PHENCYCLIDINE,URINE NEGATIVE (NEGATIVE); TCA,URINE NEGATIVE (NEGATIVE)
[2025-02-06 12:58] LABS: EPITHELIAL CELLS,URINE MODERATE /HPF (NOT SEEN)
[2025-02-06 15:00] LABS: PHOSPHORUS 2.0 mg/dL (2.6-4.7)
[2025-02-06 15:15] LABS: INR 0.9 (0.9-1.2); PTT,PARTIAL THROMBOPLSTIN TIME 23.0 SEC (22.0-34.0)
[2025-02-06 15:16] LABS: IRON,FE 27.0 ug/dL (50-170); PERCENT FE SATURATION 5.0 % (20.0-50.0)
[2025-02-06 15:28] LABS: FOLIC ACID 5.5 ng/mL (8.6-58.9)
[2025-02-06] MEDS: MVI, Adult with Vitamin K 10 ML, Folic Acid 1 MG, Thiamine 100 MG in Lactated Ringers 1... IV ONE (15:40)
[2025-02-06] MEDS: Potassium Chloride 10 MEQ Tab.ER PO ONE (15:42)
[2025-02-06] MEDS: Sodium Chloride 0.9% 10 ML Syringe FLUSH PRN (15:43)
[2025-02-06] MEDS ORDERED: Flumazenil 0.1 MG/ML 5 ML MDV IVPUSH PRN (15:49)
[2025-02-06] MEDS: Phosphorus #1 250 MG Tab PO SCH (16:34)
[2025-02-06] MEDS: Sodium Chloride 0.9% 10 ML Syringe FLUSH SCH (21:04)
[2025-02-07 06:43] LABS: BASOPHILS PERCENT AUTO 0.0 % (0.0-1.0); EOSINOPHILS PERCENT AUTO 0.0 % (1.0-3.0); LYMPHOCYTES PERCENT AUTO 47.1 % (20.5-50.1); MONOCYTES PERCENT AUTO 10.0 % (2-8); NEUTROPHILS PERCENT AUTO 42.9 % (42.2-75.2); PLATELET COUNT,PLT 285 10^3/uL (150-450); RED BLOOD CELL COUNT 3.90 10^6/uL (4.2-5.4); WHITE BLOOD CELL COUNT,WBC 2.6 10^3/uL (5.0-10.0)
[2025-02-07 07:03] LABS: ALANINE AMINOTRANSFERASE,ALT 50 U/L (14-59); ASPARTATE AMNIOTRANSFERASE,AST 41 U/L (15-37); BILIRUBIN TOTAL 0.3 mg/dL (0.2-1.0); BLOOD UREA NITROGEN,BUN 8 mg/dL (7-18); CARBON DIOXIDE,CO2 29 mmol/L (21-32); CHLORIDE,CL 103 mmol/L (98-107); CREATININE 0.59 mg/dL (0.55-1.02); EST CRCL DRUG DOSING (CG) 128.19 mL/min; GLUCOSE RANDOM 100 mg/dL (70-99); POTASSIUM,K 3.5 mmol/L (3.5-5.1); PROTEIN TOTAL,TP 6.6 g/dL (6.4-8.2); SODIUM,NA 141 mmol/L (136-145)
[2025-02-07 07:04] LABS: A/G RATIO 0.69; ESTIMATED GFR 120 mL/min (>=60)
[2025-02-07 07:05] LABS: ETHANOL BLOOD MEDICAL < 3 mg/dL (0)
[2025-02-07] MEDS: Ondansetron 4 MG/2 ML SDV IVPUSH PRN (08:36)
[2025-02-07 12:50] VITALS: PULSE 76
[2025-02-07 14:33] VITALS: BP 138/78
== END 2025-02-07 14:25 | disposition home or self-care (01) ==
LOC: DL.ED 11:30 → UNDOADMOB 13:00 → DL.MS 13:00 → DL.ED 14:12 → UNDODISOB 02-07 14:25
PROVIDERS: ADMIT Student in an Organized Health Care Education/Training Program; ATTEND Student in an Organized Health Care Education/Training Program
DX: F10.90 Alcohol use, unspecified, uncomplicated (principal); F41.9 Anxiety disorder, unspecified; D64.9 Anemia, unspecified; R73.9 Hyperglycemia, unspecified; B19.20 Unspecified viral hepatitis C without hepatic coma; Z88.1 Allergy status to other antibiotic agents; Z88.5 Allergy status to narcotic agent; Z88.8 Allergy status to other drugs, medicaments and biological substances; Z79.899 Other long term (current) drug therapy
CPT/HCPCS: 36415; 80053; 80305; 80307; 81001; 81025; 82607; 82728; 82746; 82977; 83036; 83540; 83550; 83735; 84100; 84484; 85025; 85610; 85730; 86850; 86900; 86901; 87086; 87088; 87186; 93005; 99285; A9270; J1808; J2405; J3411; J7120; Q0138; 93010; 96365; 96366; 96375; 99284; G0378; J3490

== ENCOUNTER 2025-02-09 08:39 | Emergency (ER) | payer MEDICAID ==
[2025-02-09] MEDS: GI Cocktail Oral Solution 30 ML PO ONE (09:18)
[2025-02-09 09:21] LABS: PLATELET COUNT,PLT 312 10^3/uL (150-450); RED BLOOD CELL COUNT 4.05 10^6/uL (4.2-5.4); WHITE BLOOD CELL COUNT,WBC 3.4 10^3/uL (5.0-10.0)
[2025-02-09 09:27] LABS: BASOPHILS PERCENT AUTO 0.0 % (0.0-1.0); EOSINOPHILS PERCENT AUTO 0.0 % (1.0-3.0); LYMPHOCYTES PERCENT AUTO 35.9 % (20.5-50.1); MONOCYTES PERCENT AUTO 8.8 % (2-8); NEUTROPHILS PERCENT AUTO 55.3 % (42.2-75.2)
[2025-02-09 09:43] LABS: ALANINE AMINOTRANSFERASE,ALT 58 U/L (14-59); ASPARTATE AMNIOTRANSFERASE,AST 46 U/L (15-37); BILIRUBIN TOTAL 0.3 mg/dL (0.2-1.0); BLOOD UREA NITROGEN,BUN 7 mg/dL (7-18); CARBON DIOXIDE,CO2 25 mmol/L (21-32); CHLORIDE,CL 106 mmol/L (98-107); CREATININE 0.61 mg/dL (0.55-1.02); ETHANOL BLOOD MEDICAL 54 mg/dL (0); GLUCOSE RANDOM 116 mg/dL (70-99); POTASSIUM,K 3.5 mmol/L (3.5-5.1); PROTEIN TOTAL,TP 7.4 g/dL (6.4-8.2); SODIUM,NA 144 mmol/L (136-145)
[2025-02-09 09:50] LABS: A/G RATIO 0.76; ESTIMATED GFR 119 mL/min (>=60)
[2025-02-09 09:58] LABS: APPEARANCE,URINE CLOUDY (CLEAR); GLUCOSE,URINE NEGATIVE (NEGATIVE); OCCULT BLOOD,URINE LARGE (NEGATIVE)
[2025-02-09 10:06] LABS: AMPHETAMINES,URINE NEGATIVE (NEGATIVE); BARBITURATES,URINE NEGATIVE (NEGATIVE); MDMA (ECSTASY), URINE NEGATIVE (NEGATIVE); METHAMPHETAMINES,URINE NEGATIVE (NEGATIVE); OPIATES,URINE NEGATIVE (NEGATIVE); OXYCODONE,URINE NEGATIVE (NEGATIVE); PHENCYCLIDINE,URINE NEGATIVE (NEGATIVE); TCA,URINE NEGATIVE (NEGATIVE)
[2025-02-09 10:13] LABS: BAND PERCENT MAN 4 %; LYMPHOCYTES PERCENT MAN 40 % (20-50); MONOCYTES PERCENT MAN 6 % (2-8); SEG NEUTROPHILS PERCENT MAN 50 % (42-75)
[2025-02-09 10:34] LABS: EPITHELIAL CELLS,URINE MANY /HPF (NOT SEEN)
[2025-02-09 11:01] VITALS: BP 137/83; PULSE 87
== END 2025-02-09 10:52 | disposition home or self-care (01) ==
LOC: DL.ED 08:39
DX: K21.9 Gastro-esophageal reflux disease without esophagitis (principal); R10.13 Epigastric pain; Z88.0 Allergy status to penicillin; Z88.1 Allergy status to other antibiotic agents; Z88.5 Allergy status to narcotic agent; Z88.8 Allergy status to other drugs, medicaments and biological substances; Z79.899 Other long term (current) drug therapy; Z90.49 Acquired absence of other specified parts of digestive tract
CPT/HCPCS: 36415; 80053; 80305; 80307; 81001; 81025; 83690; 83735; 84484; 85025; 87086; 99284; A9270

== ENCOUNTER 2025-02-10 14:40 | Emergency (ER) | payer MEDICAID ==
[2025-02-10 14:51] VITALS: BP 157/103; PULSE 85
[2025-02-10] MEDS: Take Home: Ondansetron 4 MG Tab.DIS, 5 Tab Pack PO ONE (15:02)
== END 2025-02-10 15:07 | disposition home or self-care (01) ==
LOC: DL.ED 14:40
DX: R11.2 Nausea with vomiting, unspecified (principal); Z90.49 Acquired absence of other specified parts of digestive tract; Z88.1 Allergy status to other antibiotic agents; Z88.5 Allergy status to narcotic agent; Z88.8 Allergy status to other drugs, medicaments and biological substances; Z79.899 Other long term (current) drug therapy
CPT/HCPCS: 99283; Q0162

== ENCOUNTER 2025-02-11 20:31 | Emergency (ER) | payer MEDICAID | END 2025-02-11 20:59 | disposition left against medical advice (07) | LOC: DL.ED 20:31 | DX: Z53.21 Procedure and treatment not carried out due to patient leaving prior to being seen by health care provider (principal) ==

== ENCOUNTER 2025-02-13 23:31 | Emergency (ER) | payer MEDICAID ==
[2025-02-13 23:59] VITALS: BP 145/82; PULSE 102
[2025-02-14] MEDS: Ondansetron 4 MG Tab.DIS PO ONE (00:19)
== END 2025-02-14 00:40 | disposition home or self-care (01) ==
LOC: DL.ED 23:31
DX: F10.10 Alcohol abuse, uncomplicated (principal); Z59.00 Homelessness unspecified; Z88.0 Allergy status to penicillin; Z88.1 Allergy status to other antibiotic agents; Z88.5 Allergy status to narcotic agent; Z88.8 Allergy status to other drugs, medicaments and biological substances; Z79.899 Other long term (current) drug therapy; Y90.9 Presence of alcohol in blood, level not specified
CPT/HCPCS: 99283; 99284; A9270-GY

== ENCOUNTER 2025-02-17 14:55 | Emergency (ER) | payer MEDICAID ==
[2025-02-17] MEDS ORDERED: Buprenorphine/Naloxone 8-2 MG Tab.SL SL ONE (14:56)
[2025-02-17 15:08] VITALS: BP 128/112; PULSE 103
[2025-02-17] MEDS: Buprenorphine/Naloxone 2-0.5 MG Tab.SL SL STA (15:22)
[2025-02-17] MEDS: Buprenorphine/Naloxone 8-2 MG Tab.SL SL ONE ×2 (15:30→15:36)
[2025-02-17] MEDS: Ondansetron 4 MG Tab.DIS PO ONE (15:34)
== END 2025-02-17 15:58 | disposition home or self-care (01) ==
LOC: DL.ED 14:55
DX: F11.93 Opioid use, unspecified with withdrawal (principal); Z91.138 Patient's unintentional underdosing of medication regimen for other reason; Z88.1 Allergy status to other antibiotic agents; Z88.0 Allergy status to penicillin; Z88.5 Allergy status to narcotic agent; Z88.6 Allergy status to analgesic agent; Z88.8 Allergy status to other drugs, medicaments and biological substances; Z90.49 Acquired absence of other specified parts of digestive tract
CPT/HCPCS: 99283; A9270; A9270-GY

== ENCOUNTER 2025-02-22 13:16 | Emergency (ER) | payer MEDICAID ==
[2025-02-22] MEDS ORDERED: Sodium Chloride 0.9% 10 ML Syringe FLUSH PRN (13:26)
[2025-02-22 13:48] LABS: BASOPHILS PERCENT AUTO 0.0 % (0.0-1.0); EOSINOPHILS PERCENT AUTO 0.0 % (1.0-3.0); LYMPHOCYTES PERCENT AUTO 51.5 % (20.5-50.1); MONOCYTES PERCENT AUTO 6.6 % (2-8); NEUTROPHILS PERCENT AUTO 41.9 % (42.2-75.2); PLATELET COUNT,PLT 287 10^3/uL (150-450); RED BLOOD CELL COUNT 4.55 10^6/uL (4.2-5.4); WHITE BLOOD CELL COUNT,WBC 4.3 10^3/uL (5.0-10.0)
[2025-02-22 14:04] LABS: AMPHETAMINES,URINE NEGATIVE (NEGATIVE); BARBITURATES,URINE NEGATIVE (NEGATIVE); MDMA (ECSTASY), URINE NEGATIVE (NEGATIVE); METHAMPHETAMINES,URINE NEGATIVE (NEGATIVE); OPIATES,URINE NEGATIVE (NEGATIVE); OXYCODONE,URINE NEGATIVE (NEGATIVE); PHENCYCLIDINE,URINE NEGATIVE (NEGATIVE); TCA,URINE NEGATIVE (NEGATIVE)
[2025-02-22 14:12] LABS: LACTIC ACID 3.9 mmol/L (0.4-2.0)
[2025-02-22 14:12] LABS: APPEARANCE,URINE CLEAR (CLEAR); GLUCOSE,URINE NEGATIVE (NEGATIVE); OCCULT BLOOD,URINE TRACE-INTACT (NEGATIVE)
[2025-02-22 14:13] LABS: INR 0.9 (0.9-1.2); PTT,PARTIAL THROMBOPLSTIN TIME 24.2 SEC (22.0-34.0)
[2025-02-22 14:18] LABS: A/G RATIO 0.9; ALANINE AMINOTRANSFERASE,ALT 93.0 U/L (14-59); ASPARTATE AMNIOTRANSFERASE,AST 77.0 U/L (15-37); BILIRUBIN TOTAL 0.4 mg/dL (0.2-1.0); BLOOD UREA NITROGEN,BUN 4.0 mg/dL (7-18); CARBON DIOXIDE,CO2 23.0 mmol/L (21-32); CHLORIDE,CL 105.0 mmol/L (98-107); CREATININE 0.58 mg/dL (0.55-1.02); EST CRCL DRUG DOSING (CG) 135.27 mL/min; ESTIMATED GFR 120.0 mL/min (>=60); ETHANOL BLOOD MEDICAL 246.0 mg/dL (0); GLUCOSE RANDOM 142.0 mg/dL (70-99); POTASSIUM,K 3.1 mmol/L (3.5-5.1); PROTEIN TOTAL,TP 7.4 g/dL (6.4-8.2); SODIUM,NA 143.0 mmol/L (136-145); TSH ULTRASENSITIVE 1.06 uIU/mL (0.36-3.74)
[2025-02-22] MEDS: MVI, Adult with Vitamin K 10 ML, Folic Acid 1 MG, Thiamine 100 MG in Lactated Ringers 1... IV ONE (14:20)
[2025-02-22 14:33] LABS: EPITHELIAL CELLS,URINE FEW /HPF (NOT SEEN)
[2025-02-22] MEDS: Potassium Chloride 10 MEQ Tab.ER PO ONE (14:37)
[2025-02-22] MEDS: Ondansetron 4 MG/2 ML SDV IVPUSH ONE (14:37)
[2025-02-22 17:44] VITALS: BP 134/79; PULSE 77
== END 2025-02-22 17:19 | disposition home or self-care (01) ==
LOC: DL.ED 13:16
DX: F10.129 Alcohol abuse with intoxication, unspecified (principal); Z59.00 Homelessness unspecified; Z88.0 Allergy status to penicillin; Z88.1 Allergy status to other antibiotic agents; Z88.5 Allergy status to narcotic agent; Z88.8 Allergy status to other drugs, medicaments and biological substances; Z79.899 Other long term (current) drug therapy; Z90.49 Acquired absence of other specified parts of digestive tract
CPT/HCPCS: 36415; 80053; 80143; 80179; 80305; 80307; 81001; 81025; 83605; 83735; 84443; 85025; 85610; 85730; 96361; 96365; 96375; 99284; A9270; J1808; J2405; J3411; J7030; J7120; J3490